=== PATIENT | male | born 1960 | race Caucasian/White ===

== ENCOUNTER → 2016-10-27 | Day surgery (SDC) | payer BC ==
[2016-10-16 10:56] VITALS: Ht 180.3 cm; Wt 90.9 kg
[~2016-10-27] VITALS: Ht 180.3 cm; Wt 90.9 kg
[~2016-10-27] MED LIST: AMLO-114 PO; ASPCH81X PO; ATOR-24 PO; CHOL100010 PO; HYDR25TA4 PO; LIDOCAINE HCL 2% 2 ML VIAL (20MG/ML) ONE; LSNP/30 PO; METO100T44 PO; MIDAZOLAM HCL 1 MG/ML 2ML VIAL ONE; MULT-506 PO; NAPR1TAB9 PO; ONDANSETRON INJ 2 MG/ML 2 ML VIAL ONE; PROPOFOL IV EMULSION 10 MG/ML 20 ML VIAL IV ONE; SODIUM CHLORIDE 0.9% 500ML 500 ML IV ONE
--- NOTE | 2016-10-27 14:27 | Endo History and Physical ---
History & Physical Date of Service: October 27, 2016. Chief Complaint: screening Referring Physician: Dr. Bhavani Mott History of Present Illness 55 yo CM who presents for screening colonoscopy. Past Medical History Hypertension, CVA/TIA Past Surgical History Hx Cardiac Surgery: No Hx Internal Defibrillator: No Hx Pacemaker: No Hx Abdominal Surgery: No Hx of Implantable Prosthesis: No Hx Post-Op Nausea and Vomiting: No Hx Cancer Surgery: No Hx Thoracic Surgery: No Hx Orthopedic: No Hx Urinary Tract Surgery: No Family History None Social History Smoking Status: Never Smoker Hx Substance Use: No Hx Alcohol Use: Yes (1 DRINK DAILY) Allergies Coded Allergies: Penicillins (Verified Allergy, Unknown, UNKNOWN, 10/16/16) Current Medications Reported Home Medications Medications Dose Route/Sig Max Daily Dose Days Date Category Aleve (Naproxen) 220 Mg Tab 220 Mg PO QAM 10/16/16 Reported Vitamin D (Cholecalciferol) 1,000 Unit Tab 1 Tab PO QAM 10/16/16 Reported Multivitamin (Multivitamins) Tab 1 Tab PO QAM 10/16/16 Reported Toprol-Xl (Metoprolol Succinate) 100 Mg Tabcr 100 Mg PO QAM 10/16/16 Reported Zestril (Lisinopril) 30 Mg Tab 30 Mg PO QAM 10/16/16 Reported Hctz (Hydrochlorothiazide) 25 Mg Tab 25 Mg PO QAM 10/16/16 Reported Lipitor (Atorvastatin Calcium) 40 Mg Tab 40 Mg PO QAM 10/16/16 Reported Aspirin Chewable (Aspirin) 81 Mg Chew 81 Mg PO QAM 10/16/16 Reported Norvasc (Amlodipine Besylate) 10 Mg Tab 10 Mg PO QAM 10/16/16 Reported Vital Signs Weight (Kilograms): 90.91 Height (Feet): 5 Height (Inches): 11 Date Time Temp Pulse Resp B/P Pulse Ox O2 Delivery O2 Flow Rate FiO2 10/27/16 14:07 36.8 83 20 118/82 98 Room Air Physical Exam General Appearance: WD/WN, no apparent distress Respiratory/Chest: Auscultation: breath sounds normal Cardiovascular: Heart Auscultation: RRR Abdomen: Bowel Sounds: normal Inspection & Palpation: soft, non-distended, no tenderness, guarding & rebound Assessment and Plan Assessment: 55 yo CM who presents for screening colonoscopy. Plan: Proceed with colonoscopy.
--- NOTE | 2016-10-27 14:47 | Discharge Instructions ---
Endoscopy Patient Instructions Date / Procedure(s) Performed October 27, 2016. Colonoscopy Allergy Information Coded Allergies: Penicillins (Verified Allergy, Unknown, UNKNOWN, 10/16/16) Discharge Date / Findings October 27, 2016. Internal hemorrhoids Medication Instructions Stopped Medication(s): took baby ASA yesterday OK to resume all medications today as prescribed Reported Home Medications Medications Dose Route/Sig Max Daily Dose Days Date Category Aleve (Naproxen) 220 Mg Tab 220 Mg PO QAM 10/16/16 Reported Vitamin D (Cholecalciferol) 1,000 Unit Tab 1 Tab PO QAM 10/16/16 Reported Multivitamin (Multivitamins) Tab 1 Tab PO QAM 10/16/16 Reported Toprol-Xl (Metoprolol Succinate) 100 Mg Tabcr 100 Mg PO QAM 10/16/16 Reported Zestril (Lisinopril) 30 Mg Tab 30 Mg PO QAM 10/16/16 Reported Hctz (Hydrochlorothiazide) 25 Mg Tab 25 Mg PO QAM 10/16/16 Reported Lipitor (Atorvastatin Calcium) 40 Mg Tab 40 Mg PO QAM 10/16/16 Reported Aspirin Chewable (Aspirin) 81 Mg Chew 81 Mg PO QAM 10/16/16 Reported Norvasc (Amlodipine Besylate) 10 Mg Tab 10 Mg PO QAM 10/16/16 Reported Provider Instructions Activity Restrictions - No exercising or heavy lifting for 24 hours. - Do not drink alcohol the day of the procedure. - Do not drive a car or operate machinery until the day after the procedure. - Do not make any important decisions or sign important papers in 24 hours after the procedure. Following Day: - Return to full activity which may include returning to work/school. Diet Start your diet with liquids and light foods (jello, soup, juice, toast). Then eat your usual diet if not nauseated. Treatment For Common After Affects For mild abdominal pain, bloating, or excessive gas: - Rest - Eat lightly - Lie on right side Follow-Up Information Follow-up with Dr. Bhavani Mott as scheduled Anesthesia Information What You Should Know You have had a procedure that required some medicine to reduce anxiety and discomfort. This treatment is called moderate sedation. After receiving the treatment, you may be sleepy, but you will be able to breathe on your own. The effects of the treatment may last for several hours. Follow these instructions along with Activity/Diet recommendations noted above: * Do NOT do anything where dizziness or clumsiness would be dangerous. * Rest quietly at home today, then you can be up and about tomorrow. * Have a responsible person stay with you the rest of today. * You may have had an I.V. today. If so, you may take the dressing off later today. Recommendations Call your doctor if: * Trouble breathing * Continuous vomiting for more than 24 hours * Temperature above 101 degrees * Severe abdominal pain or bloating * Pain not relieved by pain medicine ordered * There is increased drainage or redness from any incision * A large amount of rectal bleeding greater than 2-3 tablespoons. (If you had a polyp/s removed or have hemorrhoids, a small amount of blood - from the rectum is to be expected.) * You have any unanswered questions or concerns. IN THE EVENT OF A SERIOUS EMERGENCY, GO TO THE NEAREST EMERGENCY ROOM Your discharge instructions were prepared by provider Alonzo Espinoza. Patient Instructions Signature Page Keith Lopez Patient (or Guardian) Signature/Date: I have read and understand the instructions given to me by my caregivers. Caregiver/RN/Doctor Signature/Date: The above-named patient and/or guardian has received patient instructions on this date. + Original Patient Signature Page (only) stays with chart. Please make copy for patient.
--- NOTE | 2016-10-27 14:53 | GI REPORT ---
Procedure Date: 10/27/2016 2:03 PM Procedure: Colonoscopy Indications: Screening for colorectal malignant neoplasm Medicines: Monitored Anesthesia Care Complications: No immediate complications. Estimated Blood Loss: Estimated blood loss: none. Procedure: Pre-Anesthesia Assessment: - Prior to the procedure, a History and Physical was performed, and patient medications and allergies were reviewed. The patient's tolerance of previous anesthesia was also reviewed. The risks and benefits of the procedure and the sedation options and risks were discussed with the patient. All questions were answered, and informed consent was obtained. Prior Anticoagulants: The patient has taken aspirin, last dose was 1 day prior to procedure. ASA Grade Assessment: III - A patient with severe systemic disease. After reviewing the risks and benefits, the patient was deemed in satisfactory condition to undergo the procedure. After I obtained informed consent, the scope was passed under direct vision. Throughout the procedure, the patient's blood pressure, pulse, and oxygen saturations were monitored continuously. The scope was introduced through the anus and advanced to the terminal ileum. The colonoscopy was performed without difficulty. The patient tolerated the procedure well. The quality of the bowel preparation was good. The terminal ileum, ileocecal valve, appendiceal orifice, and rectum were photographed. Findings: Non-bleeding internal hemorrhoids were found during retroflexion. The hemorrhoids were small. The exam was otherwise without abnormality. Impression: - Non-bleeding internal hemorrhoids. - The examination was otherwise normal. - No specimens collected. Recommendation: - Resume previous diet. - Continue present medications. - Repeat colonoscopy in 10 years for surveillance. - Return to primary care physician as previously scheduled. Alonzo Espinoza, DO 10/27/2016 2:52:52 PM This report has been signed electronically. Note Initiated On: 10/27/2016 2:03 PM I attest to the content of the Intraoperative Record and orders documented therein, exceptions below
--- NOTE | 2016-10-27 15:13 | Anesthesiology Progress Note ---
Anesthesia Post Op Note Date & Time October 27, 2016 at 15:12 Vital Signs Pain Intensity: 0 Vital Signs Past 12 Hours Date Time Temp Pulse Resp B/P Pulse Ox O2 Delivery O2 Flow Rate FiO2 10/27/16 15:05 58 20 97/67 95 Room Air 10/27/16 14:50 68 20 101/70 94 Room Air 10/27/16 14:07 36.8 83 20 118/82 98 Room Air Notes Mental Status: alert / awake / arousable, participated in evaluation Pt Amnestic to Procedure: Yes Nausea / Vomiting: adequately controlled Pain: adequately controlled Airway Patency, RR, SpO2: stable & adequate BP & HR: stable & adequate Hydration State: stable & adequate Anesthetic Complications: no major complications apparent
[2016-10-27 15:20] VITALS: BP 113/87; PULSE 69; O2SAT 94
== END | disposition home or self-care (01) ==
LOC: C.ACU 13:18
PROVIDERS: ATTEND Internal Medicine
DX: Z12.11 Encounter for screening for malignant neoplasm of colon (principal); K64.8 Other hemorrhoids; I10 Essential (primary) hypertension; Z88.0 Allergy status to penicillin; M19.90 Unspecified osteoarthritis, unspecified site; Z86.73 Personal history of transient ischemic attack (TIA), and cerebral infarction without residual deficits; Z98.818 Other dental procedure status; Z79.82 Long term (current) use of aspirin; Z68.28 Body mass index [BMI] 28.0-28.9, adult

== ENCOUNTER 2025-02-23 19:17 | Observation (INO) ==
[2025-02-23 20:45] LABS: Hematocrit (blood only) 41.8 % (42.0-52.0); Hemoglobin 14.5 g/dl (14.0-18.0); Mean Corpuscular Hemoglobin 34.1 pg (25.0-34.0); Mean Corpuscular Volume 98.4 fL (80.0-100.0); Platelet Count 138 K/uL (130-400); RDW Standard Deviation 46.6 fL (36.4-46.3); Red Blood Count 4.25 M/uL (4.70-6.10); White Blood Count 7.05 K/ul (4.8-10.8)
[2025-02-23 21:01] LABS: Alanine Aminotransferase 224.0 U/L (7-52); Albumin Globulin Ratio 1.6 (0.9-2); Alkaline Phosphatase 70.0 U/L (34-104); Anion Gap 13.0 (3-11); Bilirubin,Total 1.6 mg/dl (0.2-1.0); Blood Urea Nitrogen 23.0 mg/dl (6-23); Calcium 9.9 mg/dl (8.6-10.3); Carbon Dioxide 30.0 mmol/L (21-32); Chloride 96.0 mmol/L (98-107); Creatinine Clr Calc Pharmacy 51.9 ml/min; Globulin 2.7 gm/dl (2.5-4.0); Glucose 97.0 mg/dl (70-99(Fasting)); Magnesium 1.8 mg/dl (1.7-2.4); Potassium 3.2 mmol/L (3.5-5.1); Sodium 139.0 mmol/L (136-145); Total Protein 7.1 gm/dl (6.0-8.3)
[2025-02-23 21:20] LABS: INR 1.0 (0.9-1.1); Partial Thromboplastin Time 28 Seconds (21-31); Prothrombin Time 10.4 Seconds (9.0-12.0)
[2025-02-23] MEDS: OPTIRAY 320 100ml IV ONE (21:29)
--- NOTE | 2025-02-23 23:22 | CT Scan Report ---
Exam(s): CT CHEST With Contrast IV Amt: 90 ml optiray 320 EXAM: CT Chest With Intravenous Contrast CLINICAL HISTORY: Ecchymosis/pain of posterior rib cage, rib fx. TECHNIQUE: Axial computed tomography images of the chest with intravenous contrast. CTDI is 26.58 mGy and DLP is 911.33 mGy-cm. Automated exposure control was utilized for the study. A dose lowering technique was utilized adhering to the principles of ALARA. CONTRAST: Patient received 90 ml optiray 320 of IV contrast COMPARISON: No relevant prior studies available. FINDINGS: Lungs: No pulmonary contusive injury with curvilinear atelectasis in the posterior lower lobes. No mass. Pleural space: Unremarkable. No significant effusion. No pneumothorax. Heart: Unremarkable. No cardiomegaly. No significant pericardial effusion. No significant coronary artery calcifications. Mediastinum: No mediastinal traumatic injury. Small hiatal hernia. Bones/joints: Remote posterior rib fractures noted involving the right 6 and 7th ribs. No acute rib fracture identified. The sternum, thoracic spine and included segments of the shoulders are unremarkable. Soft tissues: No significant overlying acute traumatic soft tissue abnormality. No radiopaque foreign body or subcutaneous emphysema. Vasculature: The thoracic aorta is within normal limits in size. No dissection. Moderate atherosclerotic calcification of the LAD with mild- to-moderate calcification of the RCA and circumflex. The cardiac chambers are upper normal limits. Lymph nodes: Unremarkable. No enlarged lymph nodes. Liver: Incidental cysts noted in segment 8 and segment 2 of the liver. Hepatic steatosis. IMPRESSION: 1. Remote posterior rib fractures noted involving the right 6 and 7th ribs. No acute rib fracture identified. The sternum, thoracic spine and included segments of the shoulders are unremarkable. No significant overlying acute traumatic soft tissue abnormality appreciated. 2. No other findings to suggest significant acute traumatic injury to the chest/thorax. Electronically signed by: Mathieu Sapp MD 02/23/25 23:21 PM
--- NOTE | 2025-02-23 23:46 | CT Scan Report ---
Exam(s): CT HEAD Without Contrast EXAM: CT Head Without Intravenous Contrast CLINICAL HISTORY: Reason for exam: Fall, head trauma, confusion. TECHNIQUE: Axial computed tomography images of the head/brain without intravenous contrast. CTDI is 36.55 mGy and DLP is 624.41 mGy-cm. Automated exposure control was utilized for the study. A dose lowering technique was utilized adhering to the principles of ALARA. COMPARISON: Prior brain MRI from September 01, 2013. FINDINGS: Brain: Remote ischemic injury of the left frontal, parietal and temporal lobes with encephalomalacia and gliosis. Remote ischemic injury of the left capsule. No hemorrhage. Mild nonspecific white matter changes. No edema. Ventricles: Unremarkable. No ventriculomegaly. Bones/joints: Unremarkable. No acute fracture. Soft tissues: Unremarkable. Sinuses: Unremarkable as visualized. No acute sinusitis. Mastoid air cells: Unremarkable as visualized. No mastoid effusion. IMPRESSION: No evidence of acute intracranial pathology. Electronically signed by: Lou Alexandra MD 02/23/25 23:44 PM
--- NOTE | 2025-02-23 23:50 | CT Scan Report ---
Exam(s): CT C SPINE EXAM: CT Cervical Spine Without Intravenous Contrast CLINICAL HISTORY: Reason for exam: fall, confusion,. TECHNIQUE: Axial computed tomography images of the cervical spine without intravenous contrast. CTDI is 24.93 mGy and DLP is 545.68 mGy-cm. Automated exposure control was utilized for the study. A dose lowering technique was utilized adhering to the principles of ALARA. COMPARISON: Prior CT angiogram of the neck from August 21, 2009. FINDINGS: Vertebrae: There is a mild generalized curved to the left and straightening normal cervical lordosis. No acute fracture. Discs/spinal canal/neural foramina: No acute findings. There is a severe spinal canal stenosis at C5-6. Soft tissues: Unremarkable. IMPRESSION: No evidence of acute cervical spine pathology. Electronically signed by: Lou Alexandra MD 02/23/25 23:49 PM
[2025-02-24 00:02] LABS: Appearance Urine Clear (Clear); Bacteria Urine Automated None Seen (None Seen); Cast Urine Automated 0-2 /lpf (0-2); Epithelial Cell Urine Auto 0-2 /hpf (0-2); Glucose Urine UA Negative (Negative); RBC Urine Automated 0-2 /hpf (0-2); WBC Urine Automated 0-5 /hpf (0-5)
--- NOTE | 2025-02-24 00:21 | Emergency Department Note ---
Impression & Plan Acute confusion, Chest wall contusion ED Provider Note NAME: VANDANA PEÑA AGE: 64 SEX: M : 1960 ARRIVES VIA: Walk-In INFORMANT: Patient, ED PROVIDER(S): Hernan Langley MD CHIEF COMPLAINT: Confusion HPI: This is a 64-year-old male present for confusion. Patient reported fall last night. Patient was found by his neighbor who found his chair upside down, patient sitting on the floor. He had his underwear on backwards. He dropped a shirt on through his legs. He was visibly confused. Patient does drink occasionally but patient not appear intoxicated today. Reports no pain, vision changes, difficulty with walking or moving extremities. He otherwise not provide much history. ROS: See above HPI for pertinent positives & negatives. A total of 10 systems reviewed and were otherwise negative. PHYSICAL EXAMINATION: General: resting comfortably in no acute distress Head: Normocephalic and atraumatic Eyes: Normal inspection, extraocular muscles intact Ear, nose, throat: Normal external exam Neck: Normal range of motion Respiratory: lungs clear to auscultation bilaterally Cardiovascular: Regular rate/rhythm, no murmur, posterior chest wall contusion GI: soft, nontender, no guarding or rebound Extremities: nontender, moves all extremities Neuro: Alert, not oriented, conversant, no focal deficits, symmetric face, no motor drift, cranial nerves II through XII intact Skin: Warm, dry, and intact MEDICAL DECISION MAKING: This is a 64-year-old male presented for confusion. Patient does have signs of bruising to the posterior chest wall. He has no neurologic deficits. Will do screening CT imaging of the head, C-spine and chest due to this suspected fall. - CT imaging is negative for acute traumatic injury or intracranial hemorrhage - Blood work reveals no leukocytosis or anemia. Creatinine 1.51. Alcohol level negative. Patient does have transaminitis without right quadrant abdominal tenderness - As patient continues to be confused, not oriented. Will admit to the hospital for further evaluation and treatment - Care discussed with Dr. Ludmila Foster for admission Differential diagnosis: Intracranial hemorrhage, stroke, encephalopathy, UTI Independent History obtained from: Neighbor Diagnostics interpreted by me: ECG: None Cardiac Monitoring: An order was placed for continuous cardiac monitoring. The monitor shows a rate of 60 with sinus rhythm. Past Med/Surg History Problem List (Updated 02/24/25 @ 00:21 by Hernan Langley MD) Chest wall contusion (Acute) Acute confusion (Acute) Sleep walking Renal calculus Anxiety and depression Hypercholesterolemia (Acute) Residual cognitive deficit as late effect of stroke (Acute) Vitamin D deficiency (Acute) Hypertension (Acute 11/01/11) Medical History History of cerebral artery occlusion History of carotid artery dissection History of cerebral infarction Left carotid artery occlusion (11/01/13) Surgical History No history of previous surgery Family History Father Myocardial infarction Mother Diabetes Bipolar disorder Sister No problems noted. Denies family history of Ovarian cancer Prostate cancer Breast cancer Colorectal cancer Social History (Updated 12/06/24 @ 13:51 by Alia Durham) Smoking Status: Never smoker Tobacco Type: Cigarettes Do You Dip or Chew Tobacco: Yes; Hx Alcohol Use: Yes (1 drink a night) Alcohol type: wine Hx Substance Use: No Preferred Language: Bhutanese Communication Ability: Effective Visual Impairment: No Limitations Hearing Ability: Normal Beliefs That Will Affect Care: None marital status: Current Living Situation: Other current occupational status: retired Feels Safe at Home: Yes Childhood Exposure to Second-Hand Smoke: Yes Diet: low salt and regular caffeine: Yes Dental Care, Regularly: No Physical Activity Frequency: Daily Seatbelt Use: always Sunscreen Use: Yes Allergies Allergies Allergy/AdvReac Type Severity Reaction Status Date / Time Penicillins Allergy Unknown HAPPENED Verified 02/23/25 20:56 A SMALL CHILD Home Meds Home Medications Medication Instructions Recorded Confirmed aspirin 81 mg tablet,delayed 81 mg PO DAILY 08/21/20 02/23/25 release (Adult Aspirin Regimen) amlodipine 10 mg tablet 10 mg PO DAILY 02/23/25 02/23/25 atorvastatin 80 mg tablet 80 mg PO DAILY 02/23/25 02/23/25 lisinopril 30 mg tablet 30 mg PO DAILY 02/23/25 02/23/25 Previous Rx's Medication Instructions Recorded hydrochlorothiazide 25 mg tablet 25 mg PO DAILY Hypertension #90 03/07/24 tabs sertraline 100 mg tablet 200 mg (2 x 100 mg) PO DAILY #180 06/22/24 tabs metoprolol succinate 100 mg 100 mg PO DAILY #90 tabs 11/15/24 tablet,extended release 24 hr Results & Data (ED) Vital Signs Vital Signs - 24 hr 02/23/25 19:22 02/23/25 19:33 02/23/25 19:33 Temperature 36.4 C L Temperature Source Temporal Artery Scan Pulse Rate 109 H 90 Pulse Rate [Apical] Pulse Rate from SpO2 Sensor Pulse Rhythm Regular Pulse Strength Normal Respiratory Rate 20 Respiratory Effort / Characteristics Non-Labored Spontaneous Respiratory Depth Normal Respiratory Pattern Regular Blood Pressure 168/115 H 177/109 H Blood Pressure [Right Arm] Blood Pressure Mean 132 123 Blood Pressure Mean [Right Arm] Blood Pressure Position Sitting Blood Pressure Position [Right Arm] Pulse Oximetry 95 Oxygen Delivery Method Room Air Sepsis Recent Fever Within 48 Hours No Sepsis New/Unexplained Change in Mental Status N/A Sepsis Action Taken by Nursing No Action Required 02/23/25 19:40 02/23/25 19:48 02/23/25 20:00 Temperature 36.7 C Temperature Source Oral Pulse Rate 87 85 Pulse Rate [Apical] 92 H Pulse Rate from SpO2 Sensor 87 Pulse Rhythm Pulse Strength Respiratory Rate 16 17 16 Respiratory Effort / Characteristics Non-Labored Respiratory Depth Normal Respiratory Pattern Regular Blood Pressure 142/96 H 149/105 H Blood Pressure [Right Arm] 144/92 H Blood Pressure Mean 111 119 Blood Pressure Mean [Right Arm] 109 Blood Pressure Position Blood Pressure Position [Right Arm] Lying Pulse Oximetry 93 95 95 Oxygen Delivery Method Room Air Room Air Room Air Sepsis Recent Fever Within 48 Hours Sepsis New/Unexplained Change in Mental Status Sepsis Action Taken by Nursing 02/23/25 20:40 02/23/25 22:00 02/23/25 23:00 Temperature Temperature Source Pulse Rate Pulse Rate [Apical] 80 78 68 Pulse Rate from SpO2 Sensor Pulse Rhythm Pulse Strength Respiratory Rate 17 20 18 Respiratory Effort / Characteristics Non-Labored Spontaneous Non-Labored Spontaneous Respiratory Depth Normal Normal Respiratory Pattern Regular Regular Blood Pressure Blood Pressure [Right Arm] 145/93 H 179/115 H 192/112 H Blood Pressure Mean Blood Pressure Mean [Right Arm] 110 136 138 Blood Pressure Position Blood Pressure Position [Right Arm] Pulse Oximetry 94 94 94 Oxygen Delivery Method Room Air Room Air Room Air Sepsis Recent Fever Within 48 Hours Sepsis New/Unexplained Change in Mental Status Sepsis Action Taken by Nursing Laboratory Data 02/23/25 20:30 02/23/25 19:36 Lab Results 02/23/25 02/23/25 02/23/25 Range/Units 19:36 19:39 20:15 WBC (4.8-10.8) K/ul RBC (4.70-6.10) M/uL Hgb (14.0-18.0) g/dl Hct (42.0-52.0) % MCV (80.0-100.0) fL MCH (25.0-34.0) pg MCHC (32.0-36.0) g/dL RDW Std Deviation (36.4-46.3) fL RDW Coeff of Michael (11.5-14.5) % Plt Count (130-400) K/uL MPV (9.4-12.4) fL PT 10.4 (9.0-12.0) Seconds INR 1.0 (0.9-1.1) APTT 28 (21-31) Seconds PTT Ratio 1.0 Sodium 139 (136-145) mmol/L Potassium 3.2 L (3.5-5.1) mmol/L Chloride 96 L (98-107) mmol/L Carbon Dioxide 30 (21-32) mmol/L Anion Gap 13 H (3-11) BUN 23 (6-23) mg/dl Creatinine 1.51 H (0.6-1.4) mg/dl Est Cr Clr Drug Dosing 51.9 ml/min eGFR 50.94 BUN/Creatinine Ratio 15.2 (10-20) Glucose 97 (70-99(Fasting)) mg/dl POC Glucose 99 98 (70-99) mg/dl Calcium 9.9 (8.6-10.3) mg/dl Magnesium 1.8 (1.7-2.4) mg/dl Total Bilirubin 1.6 H (0.2-1.0) mg/dl AST 156 H (13-39) U/L ALT 224 H (7-52) U/L Alkaline Phosphatase 70 (34-104) U/L Total Protein 7.1 (6.0-8.3) gm/dl Albumin 4.4 (3.4-5.0) gm/dl Globulin 2.7 (2.5-4.0) gm/dl Albumin/Globulin Ratio 1.6 (0.9-2) Urine Color Urine Appearance (Clear) Urine pH (4.5-7.5) Ur Specific Rienzi (1.000-1.030) Urine Protein (Negative) Urine Glucose (UA) (Negative) Urine Ketones (Negative) Urine Blood (Negative) Urine Nitrite (Negative) Urine Bilirubin (Negative) Urine Urobilinogen (Negative) Ur Leukocyte Esterase (Negative) Urine WBC (Auto) (0-5) /hpf Urine RBC (Auto) (0-2) /hpf U Hyaline Cast (Auto) (0-2) /lpf U Epithel Cells (Auto) (0-2) /hpf Urine Bacteria (Auto) (None Seen) Urine Comment Ethyl Alcohol mg/dL (<10.0) mg/dl 02/23/25 02/23/25 02/23/25 Range/Units 20:30 22:34 23:30 WBC 7.05 (4.8-10.8) K/ul RBC 4.25 L (4.70-6.10) M/uL Hgb 14.5 (14.0-18.0) g/dl Hct 41.8 L (42.0-52.0) % MCV 98.4 (80.0-100.0) fL MCH 34.1 H (25.0-34.0) pg MCHC 34.7 (32.0-36.0) g/dL RDW Std Deviation 46.6 H (36.4-46.3) fL RDW Coeff of Michael 13.2 (11.5-14.5) % Plt Count 138 (130-400) K/uL MPV 9.4 (9.4-12.4) fL PT (9.0-12.0) Seconds INR (0.9-1.1) APTT (21-31) Seconds PTT Ratio Sodium (136-145) mmol/L Potassium (3.5-5.1) mmol/L Chloride (98-107) mmol/L Carbon Dioxide (21-32) mmol/L Anion Gap (3-11) BUN (6-23) mg/dl Creatinine (0.6-1.4) mg/dl Est Cr Clr Drug Dosing ml/min eGFR BUN/Creatinine Ratio (10-20) Glucose (70-99(Fasting)) mg/dl POC Glucose (70-99) mg/dl Calcium (8.6-10.3) mg/dl Magnesium (1.7-2.4) mg/dl Total Bilirubin (0.2-1.0) mg/dl AST (13-39) U/L ALT (7-52) U/L Alkaline Phosphatase (34-104) U/L Total Protein (6.0-8.3) gm/dl Albumin (3.4-5.0) gm/dl Globulin (2.5-4.0) gm/dl Albumin/Globulin Ratio (0.9-2) Urine Color Yellow Urine Appearance Clear (Clear) Urine pH 6.5 (4.5-7.5) Ur Specific Rienzi > 1.045 H (1.000-1.030) Urine Protein 1+ H (Negative) Urine Glucose (UA) Negative (Negative) Urine Ketones Negative (Negative) Urine Blood Trace H (Negative) Urine Nitrite Negative (Negative) Urine Bilirubin Negative (Negative) Urine Urobilinogen Positive H (Negative) Ur Leukocyte Esterase Negative (Negative) Urine WBC (Auto) 0-5 (0-5) /hpf Urine RBC (Auto) 0-2 (0-2) /hpf U Hyaline Cast (Auto) 0-2 (0-2) /lpf U Epithel Cells (Auto) 0-2 (0-2) /hpf Urine Bacteria (Auto) None Seen (None Seen) Urine Comment Ethyl Alcohol mg/dL < 10.0 (<10.0) mg/dl Administered Medications Discontinued Medications Ioversol (Optiray 320 100ml) 90 ml IV ONCE ONE Stop: 02/23/25 21:30 Last Admin: 02/23/25 21:29 Dose: 90 ml Documented By: JAIR Imaging Data Radiologist's Impression: Head CT 02/23/25 20:30 Exam(s): CT HEAD Without Contrast EXAM: CT Head Without Intravenous Contrast CLINICAL HISTORY: Reason for exam: Fall, head trauma, confusion. TECHNIQUE: Axial computed tomography images of the head/brain without intravenous contrast. CTDI is 36.55 mGy and DLP is 624.41 mGy-cm. Automated exposure control was utilized for the study. A dose lowering technique was utilized adhering to the principles of ALARA. COMPARISON: Prior brain MRI from September 01, 2013. FINDINGS: Brain: Remote ischemic injury of the left frontal, parietal and temporal lobes with encephalomalacia and gliosis. Remote ischemic injury of the left capsule. No hemorrhage. Mild nonspecific white matter changes. No edema. Ventricles: Unremarkable. No ventriculomegaly. Bones/joints: Unremarkable. No acute fracture. Soft tissues: Unremarkable. Sinuses: Unremarkable as visualized. No acute sinusitis. Mastoid air cells: Unremarkable as visualized. No mastoid effusion. IMPRESSION: No evidence of acute intracranial pathology. Electronically signed by: Lou Alexandra MD 02/23/25 23:[address] 02/23/25 21:07 Exam(s): CT C SPINE EXAM: CT Cervical Spine Without Intravenous Contrast CLINICAL HISTORY: Reason for exam: fall, confusion,. TECHNIQUE: Axial computed tomography images of the cervical spine without intravenous contrast. CTDI is 24.93 mGy and DLP is 545.68 mGy-cm. Automated exposure control was utilized for the study. A dose lowering technique was utilized adhering to the principles of ALARA. COMPARISON: Prior CT angiogram of the neck from August 21, 2009. FINDINGS: Vertebrae: There is a mild generalized curved to the left and straightening normal cervical lordosis. No acute fracture. Discs/spinal canal/neural foramina: No acute findings. There is a severe spinal canal stenosis at C5-6. Soft tissues: Unremarkable. IMPRESSION: No evidence of acute cervical spine pathology. Electronically signed by: Lou Alexandra MD 02/23/25 23:[address] 02/23/25 21:07 Exam(s): CT CHEST With Contrast IV Amt: 90 ml optiray 320 EXAM: CT Chest With Intravenous Contrast CLINICAL HISTORY: Ecchymosis/pain of posterior rib cage, rib fx. TECHNIQUE: Axial computed tomography images of the chest with intravenous contrast. CTDI is 26.58 mGy and DLP is 911.33 mGy-cm. Automated exposure control was utilized for the study. A dose lowering technique was utilized adhering to the principles of ALARA. CONTRAST: Patient received 90 ml optiray 320 of IV contrast COMPARISON: No relevant prior studies available. FINDINGS: Lungs: No pulmonary contusive injury with curvilinear atelectasis in the posterior lower lobes. No mass. Pleural space: Unremarkable. No significant effusion. No pneumothorax. Heart: Unremarkable. No cardiomegaly. No significant pericardial effusion. No significant coronary artery calcifications. Mediastinum: No mediastinal traumatic injury. Small hiatal hernia. Bones/joints: Remote posterior rib fractures noted involving the right 6 and 7th ribs. No acute rib fracture identified. The sternum, thoracic spine and included segments of the shoulders are unremarkable. Soft tissues: No significant overlying acute traumatic soft tissue abnormality. No radiopaque foreign body or subcutaneous emphysema. Vasculature: The thoracic aorta is within normal limits in size. No dissection. Moderate atherosclerotic calcification of the LAD with mild- to-moderate calcification of the RCA and circumflex. The cardiac chambers are upper normal limits. Lymph nodes: Unremarkable. No enlarged lymph nodes. Liver: Incidental cysts noted in segment 8 and segment 2 of the liver. Hepatic steatosis. IMPRESSION: 1. Remote posterior rib fractures noted involving the right 6 and 7th ribs. No acute rib fracture identified. The sternum, thoracic spine and included segments of the shoulders are unremarkable. No significant overlying acute traumatic soft tissue abnormality appreciated. 2. No other findings to suggest significant acute traumatic injury to the chest/thorax. Electronically signed by: Mathieu Sapp MD 02/23/25 23:21 PM Discharge Plan Visit Data Chief Complaint: Neuro Symptoms/Deficit Stated Complaint: COGNITIVE PROBLEMS, HX STROKE (~10 YRS AGO) ED Provider: Hernan Langley Discharge Problem: Acute confusion, Chest wall contusion Patient Disposition: Admitted As Inpatient Condition: Fair Forms Stand Alone Forms: My [facility] [employer] Prescriptions Prescriptions: No Action hydrochlorothiazide 25 mg tablet 25 mg PO DAILY Qty: 90 3RF sertraline 100 mg tablet 200 mg PO DAILY Qty: 180 3RF metoprolol succinate 100 mg tablet extended release 24 hr 100 mg PO DAILY Qty: 90 1RF aspirin [Adult Aspirin Regimen] 81 mg tablet,delayed release (DR/EC) 81 mg PO DAILY atorvastatin 80 mg tablet 80 mg PO DAILY amlodipine 10 mg tablet 10 mg PO DAILY lisinopril 30 mg tablet 30 mg PO DAILY Rx Instructions: GOAL BELOW 140/90 Referrals Referrals: Bhavani Mott MD [Primary Care Provider] - Discharge Problem: Chest wall contusion Qualifiers: Encounter type: initial encounter Laterality: right Qualified Code(s): S20.211A - Contusion of right front wall of thorax, initial encounter
--- NOTE | 2025-02-24 00:23 | History & Physical Report ---
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 His evaluation does not reveal evidence of acute infection but does have electrolyte abnormalities to include hypokalemia, elevated anion gap, and elevated creatinine. His LFTs are also abnormal, with AST/ALT 156/224 respectively, and a bilirubin of 1.6. Head + C spine CT are unremarkable. Chest CT reveals old R sided 6th + 7th rib fractures. Admission for recent fall, episode of acute confusion, and transaminitis. #Acute confusion/Transaminitis/Fall Fall at home, found by "roommate, Khari". Does not remember fall. Does not remember much leading up to arrival at hospital, but able to recall some moments since in the hospital. No reported history of seizures. Without complaints at present. Admits to alcohol use, 1-2 drinks per night without any history of withdrawal per patient. Pt is at risk for alcohol WD, AWSS ordered. Etiology of brief confusion and fall unclear at present, pending remaining workup. Will admit with specific attention to transaminitis and etiologies of such. Continue to adjust treatment pending remaining workup. - CBC without leukocytosis, stable H/H; CMP K 3.1, Cr 1.51, bili 1.6, AST 156, ALT 224 (PT/INR WNL) - CBC, CMP am - TSH, ammonia, acetaminophen, UDS, EBV, CMV, CK pending - UA without infection - Head + C spine CT without acute findings - Chest CT with remote R sided 6th + 7th rib fractures, no acute findings - Fall precautions - AWSS - Hold atorvastatin - Zofran prn N/V - Thiamine + folic acid IV am - Ativan po per protocol - RUQ US pending #Chest wall contusion Likely 2/2 recent injury at home, no pain at present - CT chest with remote R sided 6th + 7th posterior rib fractures, no acute findings - IS #Renal insufficiency Likely in setting of poor intake over the - Cr 1.51, BUN 23 - BMP am - UA without evidence of infection - Bladder scan prn - IVF LR @ 80 mL/hr - Avoid nephrotoxic agents -- HOLD lisinopril at admission #Hypokalemia On HCTZ at baseline; Asx. - K 3.2, Mg 1.8 - BMP am - EKG NSR, without changes - HOLD HCTZ at admission, pending repeat K - KCl 40 mEq po now #Psych- Sertraline - continue #HTN- Amlodipine, HCTZ, lisinopril, metoprolol - HOLD HCTZ + Lisinopril for above (potassium, creatinine), continue amlodipine + metoprolol #Hypercholesterolemia- Atorvastatin - HOLD in setting of transaminitis Dispo: Admit, med/tele VTE Prophylaxis: SCDs This document was dictated utilizing Arc[employer]. Please excuse any grammatical errors that may be secondary to use of this software. 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 Pt does not recall any components of the fall, nor the events leading up to the fall. He states that his roommate, Khari, was the one to find him and "force" him to come to the hospital. Pt is without any complaints. He states that he does "not really" remember the reason why he is at the hospital. His only complaint is that he has not been eating much over "the past few weeks", stating that he is often nauseous with eating or 1-2 hours after eating. Occasionally has "a few dribbles" of emesis with the nausea. He does admit to weighing 199lbs ~ 4 weeks ago, believes that he has lost weight (wt at admission = 180lbs). He does have occasional constipation. No diarrhea. He denies any abdominal pain. No neurological deficits, headache, URI symptoms, F/C, or LUTS. Denies dizziness. Does admit to drinking ~ 1-2 drinks per night (liquor), with last drink being the night [employer]DER. Responds "yeah maybe... probably" when asked if he believes his drinking is a problem. Admits to occasionally drinking so much that he does not remember the events that occurred during drinking the next day. He denies history of withdrawal from alcohol, seizures from not drinking, or prior treatment for alcohol use. He is able to go a few days without a drink without symptoms. He admits to marijuana use "in the past" but states that it is not recent. He is without complaints otherwise. Does not feel confused. ED evaluation reveals CBC without leukocytosis, stable H/H; PT/INR WNL; CMP K 3.2, Cl 96, AG 13, Cr 1.51, bilirubin 1.6, AST 156, ALT 224; UA negative for infection; alcohol level negative; Head CT without acute findings; Cervical spine CT without acute findings; Chest CT remote posterior rib fx R 6th + 7th, no acute fractures, no other acute findings; EKG NSR. Please see Dr. Foster's attestation for adjustments/additions to treatment plan. Allergies Allergy/AdvReac Type Severity Reaction Status Date / Time Penicillins Allergy Unknown HAPPENED Verified 02/23/25 20:56 A SMALL CHILD Home Medications Medication Instructions Recorded Confirmed Type aspirin 81 mg tablet,delayed 81 mg PO DAILY 08/21/20 02/23/25 History release (Adult Aspirin Regimen) hydrochlorothiazide 25 mg tablet 25 mg PO DAILY Hypertension #90 03/07/24 02/23/25 Rx tabs sertraline 100 mg tablet 200 mg (2 x 100 mg) PO DAILY #180 06/22/24 02/23/25 Rx tabs metoprolol succinate 100 mg 100 mg PO DAILY #90 tabs 11/15/24 02/23/25 Rx tablet,extended release 24 hr amlodipine 10 mg tablet 10 mg PO DAILY 02/23/25 02/23/25 History atorvastatin 80 mg tablet 80 mg PO DAILY 02/23/25 02/23/25 History lisinopril 30 mg tablet 30 mg PO DAILY 02/23/25 02/23/25 History Past Med/Surg History Problem List (Updated 02/24/25 @ 01:25 by Emir Benito PA-C) Hypokalemia Renal insufficiency Transaminitis Chest wall contusion (Acute) Acute confusion (Acute) Sleep walking Renal calculus Anxiety and depression Hypercholesterolemia (Acute) Residual cognitive deficit as late effect of stroke (Acute) Vitamin D deficiency (Acute) Hypertension (Acute 11/01/11) Medical History History of cerebral artery occlusion with cerebral infarction History of carotid artery dissection History of cerebral infarction history of lunar infarct Left carotid artery occlusion (11/01/13) Surgical History No history of previous surgery Family History Father Myocardial infarction Mother Diabetes Bipolar disorder Sister No problems noted. Denies family history of Ovarian cancer Prostate cancer Breast cancer Colorectal cancer Social History Smoking Status: Former smoker Tobacco Type: Smokeless Tobacco (Dip or Chew) Second Hand Exposure: No; Do You Dip or Chew Tobacco: Yes; Hx Alcohol Use: Yes Alcohol type: hard liquor Hx Substance Use: Yes Last Used Substance: Unknown Last Used Substance Other:: 2 x per year Preferred Language: Swedish Communication Ability: Effective Visual Impairment: No Limitations Hearing Ability: Normal Beliefs That Will Affect Care: None marital status: Current Living Situation: Other Current Living Situation Comment: friend current occupational status: retired Other Information That Helps Us Care for You: No Feels Safe at Home: Yes Safety Concerns: Feels Safe At This Time Childhood Exposure to Second-Hand Smoke: Yes Diet: low salt and regular caffeine: Yes Dental Care, Regularly: No Physical Activity Frequency: Daily Seatbelt Use: always Sunscreen Use: Yes Assistive Devices: Glasses Review of Systems Review of Systems: All systems reviewed & are unremarkable except as noted in Subjective Physical Exam Physical Exam: General: No acute distress Skin: Warm and dry Head: Normocephalic, atraumatic Eyes: PERRL, conjunctivae clear, sclera non-icteric ENT: External ear and ear canal without swelling; nose atraumatic; good dentition, tongue normal appearance, pharynx normal Neck: Supple, no LAD Cardio/Chest: RRR, no M/G/R, S1 and S2 normal; mild bruising Resp: No respiratory distress, Lungs CTA in all lobes bilaterally, no wheezes, rales, or rhonchi Abdomen: Soft, symmetric, nontender; No masses or hepatosplenomegaly; Bowel sounds normoactive MSK: No deformities; pulses palpable and equal; no edema. Neuro: II- PERRL, no VF deficits III, IV, - EOMs intact, no deviation, no nystagmus V- Normal sensation in all locations VII- No asymmetry, no nasolabial fold flattening VIII- Normal hearing to speech IX, X- Normal palatal elevation, no ulnar deviation XI- 5/5 head turn + unable to understand directions for shoulder shrug even after demonstration XII- Midline tongue protrusion Motor: 5/5 strength throughout BUE/BLE; no pronator drift Reflexes: WNL throughout, no clonus Sensory: Normal sensation throughout, no hemineglect, Romberg absent Coordination: Normal [id number], no tremor, no dysmetria, normal RIVERA Gait: Unable to assess; no complaints Psych: Appropriate mood and affect; Where "[facility]", when "unsure... I have no guess to the year", president "Joseline... someone told me earlier" Results & Data Results & Data Vital Signs (Past 12 Hours) Vital Signs Temp Pulse Pulse Resp BP BP Pulse Ox 02/23/25 23:00 68 18 192/112 H 94 02/23/25 22:00 78 20 179/115 H 94 02/23/25 20:40 80 17 145/93 H 94 02/23/25 20:00 85 16 149/105 H 95 02/23/25 19:48 87 17 142/96 H 95 02/23/25 19:40 36.7 C 92 H 16 144/92 H 93 02/23/25 19:33 177/109 H 02/23/25 19:33 90 02/23/25 19:22 36.4 C L 109 H 20 168/115 H 95 O2 Del Method 02/23/25 23:00 Room Air 02/23/25 22:00 Room Air 02/23/25 20:40 Room Air 02/23/25 20:00 Room Air 02/23/25 19:48 Room Air 02/23/25 19:40 Room Air 02/23/25 19:33 02/23/25 19:33 02/23/25 19:22 Room Air Laboratory Results 02/23/25 02/23/25 02/23/25 23:30 22:34 20:30 WBC 7.05 RBC 4.25 L Hgb 14.5 Hct 41.8 L MCV 98.4 MCH 34.1 H MCHC 34.7 RDW Std Deviation 46.6 H RDW Coeff of Michael 13.2 Plt Count 138 MPV 9.4 PT INR APTT PTT Ratio Sodium Potassium Chloride Carbon Dioxide Anion Gap BUN Creatinine Est Cr Clr Drug Dosing eGFR BUN/Creatinine Ratio Glucose POC Glucose Calcium Magnesium Total Bilirubin AST ALT Alkaline Phosphatase Total Protein Albumin Globulin Albumin/Globulin Ratio Urine Color Yellow Urine Appearance Clear Urine pH 6.5 Ur Specific [place] > 1.045 H Urine Protein 1+ H Urine Glucose (UA) Negative Urine Ketones Negative Urine Blood Trace H Urine Nitrite Negative Urine Bilirubin Negative Urine Urobilinogen Positive H Ur Leukocyte Esterase Negative Urine WBC (Auto) 0-5 Urine RBC (Auto) 0-2 U Hyaline Cast (Auto) 0-2 U Epithel Cells (Auto) 0-2 Urine Bacteria (Auto) None Seen Urine Comment Ethyl Alcohol mg/dL < 10.0 02/23/25 02/23/25 02/23/25 20:15 19:39 19:36 WBC RBC Hgb Hct MCV MCH MCHC RDW Std Deviation RDW Coeff of Michael Plt Count MPV PT 10.4 INR 1.0 APTT 28 PTT Ratio 1.0 Sodium 139 Potassium 3.2 L Chloride 96 L Carbon Dioxide 30 Anion Gap 13 H BUN 23 Creatinine 1.51 H Est Cr Clr Drug Dosing 51.9 eGFR 50.94 BUN/Creatinine Ratio 15.2 Glucose 97 POC Glucose 98 99 Calcium 9.9 Magnesium 1.8 Total Bilirubin 1.6 H AST 156 H ALT 224 H Alkaline Phosphatase 70 Total Protein 7.1 Albumin 4.4 Globulin 2.7 Albumin/Globulin Ratio 1.6 Urine Color Urine Appearance Urine pH Ur Specific [place] Urine Protein Urine Glucose (UA) Urine Ketones Urine Blood Urine Nitrite Urine Bilirubin Urine Urobilinogen Ur Leukocyte Esterase Urine WBC (Auto) Urine RBC (Auto) U Hyaline Cast (Auto) U Epithel Cells (Auto) Urine Bacteria (Auto) Urine Comment Ethyl Alcohol mg/dL Diagnostic Findings Head CT 02/23/25 20:30 Exam(s): CT HEAD Without Contrast EXAM: CT Head Without Intravenous Contrast CLINICAL HISTORY: Reason for exam: Fall, head trauma, confusion. TECHNIQUE: Axial computed tomography images of the head/brain without intravenous contrast. CTDI is 36.55 mGy and DLP is 624.41 mGy-cm. Automated exposure control was utilized for the study. A dose lowering technique was utilized adhering to the principles of ALARA. COMPARISON: Prior brain MRI from September 01, 2013. FINDINGS: Brain: Remote ischemic injury of the left frontal, parietal and temporal lobes with encephalomalacia and gliosis. Remote ischemic injury of the left capsule. No hemorrhage. Mild nonspecific white matter changes. No edema. Ventricles: Unremarkable. No ventriculomegaly. Bones/joints: Unremarkable. No acute fracture. Soft tissues: Unremarkable. Sinuses: Unremarkable as visualized. No acute sinusitis. Mastoid air cells: Unremarkable as visualized. No mastoid effusion. IMPRESSION: No evidence of acute intracranial pathology. Electronically signed by: Lou Alexandra MD 02/23/25 23:[address] 02/23/25 21:07 Exam(s): CT C SPINE EXAM: CT Cervical Spine Without Intravenous Contrast CLINICAL HISTORY: Reason for exam: fall, confusion,. TECHNIQUE: Axial computed tomography images of the cervical spine without intravenous contrast. CTDI is 24.93 mGy and DLP is 545.68 mGy-cm. Automated exposure control was utilized for the study. A dose lowering technique was utilized adhering to the principles of ALARA. COMPARISON: Prior CT angiogram of the neck from August 21, 2009. FINDINGS: Vertebrae: There is a mild generalized curved to the left and straightening normal cervical lordosis. No acute fracture. Discs/spinal canal/neural foramina: No acute findings. There is a severe spinal canal stenosis at C5-6. Soft tissues: Unremarkable. IMPRESSION: No evidence of acute cervical spine pathology. Electronically signed by: Lou Alexandra MD 02/23/25 23:[address] 02/23/25 21:07 Exam(s): CT CHEST With Contrast IV Amt: 90 ml optiray 320 EXAM: CT Chest With Intravenous Contrast CLINICAL HISTORY: Ecchymosis/pain of posterior rib cage, rib fx. TECHNIQUE: Axial computed tomography images of the chest with intravenous contrast. CTDI is 26.58 mGy and DLP is 911.33 mGy-cm. Automated exposure control was utilized for the study. A dose lowering technique was utilized adhering to the principles of ALARA. CONTRAST: Patient received 90 ml optiray 320 of IV contrast COMPARISON: No relevant prior studies available. FINDINGS: Lungs: No pulmonary contusive injury with curvilinear atelectasis in the posterior lower lobes. No mass. Pleural space: Unremarkable. No significant effusion. No pneumothorax. Heart: Unremarkable. No cardiomegaly. No significant pericardial effusion. No significant coronary artery calcifications. Mediastinum: No mediastinal traumatic injury. Small hiatal hernia. Bones/joints: Remote posterior rib fractures noted involving the right 6 and 7th ribs. No acute rib fracture identified. The sternum, thoracic spine and included segments of the shoulders are unremarkable. Soft tissues: No significant overlying acute traumatic soft tissue abnormality. No radiopaque foreign body or subcutaneous emphysema. Vasculature: The thoracic aorta is within normal limits in size. No dissection. Moderate atherosclerotic calcification of the LAD with mild- to-moderate calcification of the RCA and circumflex. The cardiac chambers are upper normal limits. Lymph nodes: Unremarkable. No enlarged lymph nodes. Liver: Incidental cysts noted in segment 8 and segment 2 of the liver. Hepatic steatosis. IMPRESSION: 1. Remote posterior rib fractures noted involving the right 6 and 7th ribs. No acute rib fracture identified. The sternum, thoracic spine and included segments of the shoulders are unremarkable. No significant overlying acute traumatic soft tissue abnormality appreciated. 2. No other findings to suggest significant acute traumatic injury to the chest/thorax. Electronically signed by: Mathieu Sapp MD 02/23/25 23:21 PM ECG Additional Comments: NSR 83 bpm, DE 144, QRS 88, QT/QTc 372/437, PRT 04/25/2018 Code Status & VTE Plan Code Status Full Supervising Physician Co-Signing Physician Notes Patient seen and examined, chart reviewed, case discussed with MEKHI Benito and I agree with the assessment and plan as above PG Care Time/CCT Total # of Minutes Spent Total Time Spent with Patient: Total time spent is greater than 50% in coordination of care (as documented) at patient's floor/unit and/or counseling patient: Coding Level of Care Code 66398 INT INP/OBS CARE 3/75MIN Diagnoses Acute confusion R41.0 Transaminitis R74.01 Chest wall contusion S20.211A Encounter type: initial encounter Laterality: right Renal insufficiency N28.9 Hypokalemia E87.6 (3) Chest wall contusion Encounter type: initial encounter Laterality: right Qualified Code(s): S20.211A - Contusion of right front wall of thorax, initial encounter
[2025-02-24 01:39] LABS: Creatine Kinase 692.0 U/L (30-223)
[2025-02-24 01:55] LABS: Thyroid Stimulating Hormone 2.835 uIu/ml (0.300-4.500)
[2025-02-24 01:59] LABS: Amphetamines+Metham, Urine Neg (Neg); MDMA (Ecstacy), Urine Neg (Neg); Marijuana, Urine Neg (Neg)
[2025-02-24] MEDS ORDERED: ONDANSETRON INJ 2 MG/ML 2 ML VIAL IV PRN (02:14)
[2025-02-24] MEDS ORDERED: MELATONIN 3 MG TAB PO PRN (02:14)
[2025-02-24] MEDS ORDERED: POLYETHYLENE (MIRALAX) 17 GM PACK PO PRN (02:14)
[2025-02-24] MEDS: LACTATED RINGER'S 1,000 ML IV SCH (02:41)
[2025-02-24] MEDS: POTASSIUM CHLORIDE 20 MEQ/15 ML UDC PO STA (03:01)
[2025-02-24 03:17] LABS: EBV Nuclear Antigen IgG Ab Positive; EBV Nuclear Antigen IgG Quant 107.0 U/mL (< 18.0)
[2025-02-24 03:18] LABS: EBV IgG Quant 357.0 U/mL (< 18.0); EBV IgM Quant < 10.0 U/mL (< 36.0)
[2025-02-24] MEDS: LORazepam 1 MG TAB PO PRN (06:23)
--- NOTE | 2025-02-24 08:22 | Hospitalist Progress Note ---
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 His evaluation does not reveal evidence of acute infection but does have electrolyte abnormalities to include hypokalemia, elevated anion gap, and elevated creatinine. His LFTs are also abnormal, with AST/ALT 156/224 respectively, and a bilirubin of 1.6. Head + C spine CT are unremarkable. Chest CT reveals old R sided 6th + 7th rib fractures. Admission for recent fall, episode of acute confusion, and transaminitis. # Fall, acute metabolic encephalopathy - not clear which came first. At his baseline mental status today. Appears he was probably dehydrated and had not been eating. If confusion only after the fall, could have been mild concussion but with quick resolution seems unlikely # Alcoholic hepatitis - mild. LFTs downtrending. INR normal. Abd US with hepatic steatosis and some nonspecific GB wall thickening. No RUQ pain or tenderness. -other labs sent - EBC c/w past infection, CMV pending. hepatitis B/C screening, AM LFT ordered # Food regurgitation x 1 month. Doesn't sound like vomiting. Mild anemia. Black stools a few weeks ago. No abdominal or esophageal pain. Takes ASA and too much EtOH -could be esophagitis, stricture, web/ring, achalasia -start IV PPI -trial premeal po reglan in case it is actually emesis -consult gastroenterology - reviewed recs - probably outpatient EGD unless remaining in hospital through next week -iron studies, B12, folate and stool guaiac ordered -ferritin high cw inflammatory block, B12 368 - deserves oral supp. Folate>22 # Elevated CK and trace blood in urine no RBC's - repeat UA in primary care. Probably from muscle injury. CK only 700, not elevated enough to be rhabdomyolysis. # Probable alcohol use disorder - admits to several liquor drinks a night. Counseled wrt cessation -no evidence of withdrawal thus far, monitor AWSS. The score of 9 earlier but not compatible with significant withdrawal based on exam, symptoms ANIL - Cr normalized to his baseline 1.14 Hypokalemia - replaced resolved to 3.5, HCTZ held. AM BMP Possible pancytopenia vs diluted sample - repeat CBC in AM History of CVA with cognitive deficits - ASA, statin, BP meds #Chest wall contusion Likely 2/2 recent injury at home, no pain at present - CT chest with remote R sided 6th + 7th posterior rib fractures, no acute findings - IS #Mood disorder- Sertraline - continue #HTN- Amlodipine, HCTZ, lisinopril, metoprolol - held HCTZ + Lisinopril for above (potassium, creatinine), continue amlodipine + metoprolol, resume lisinopril #Hypercholesterolemia- Atorvastatin - held for elevated CK VTE Prophylaxis: SCDs - start chemo ppx if not home tomorrow which seems likely Admission and Anticipated Discharge Date Admission Date: February 24, 2025 Subjective Additional history - not eating x 1 month. Sounds like he is having regurgitation of food apx 2h after eating. Did eat bfast today but no appetite/felt full did not eat lunch. Saw PCP few weeks ago had black stool at that time, no pepto-bismol or iron pills, on ASA not on PPI No abdominal pain or heartburn pain Physical Exam 2 Physical Exam: Last 24h vitals reviewed GEN: no acute distress, sitting in bed HEENT: pupils equal, sclerae anicteric, moist MM RESP: normal WOB, CTAB CV: reg no mrg ABD: soft/nt/nd +BT. no epigastric tenderness : no collins SKIN: warm and dry, no generalized rashes NEURO: AOx person, place, and situation. Face symmetric, speech normal, moves 4 ext spontaneously and equally. No tremor or diaphoresis Results & Data Results & Data Vital Signs (Past 12 Hours) Vital Signs Temp Pulse Pulse Pulse Resp BP BP 02/24/25 07:32 36.9 C 58 L 18 159/97 H 02/24/25 07:28 56 L 02/24/25 05:21 37.1 C 59 L 18 174/110 H 02/24/25 02:19 37.5 C 61 18 193/105 H 02/24/25 02:14 65 02/24/25 01:42 36.6 C 58 L 22 176/108 H 02/24/25 01:00 57 L 20 168/101 H 02/24/25 00:00 36.5 C 59 L 20 172/110 H 02/23/25 23:00 68 18 192/112 H 02/23/25 22:00 78 20 179/115 H 02/23/25 20:40 80 17 145/93 H Pulse Ox O2 Del Method 02/24/25 07:32 95 Room Air 02/24/25 07:28 02/24/25 05:21 95 Room Air 02/24/25 02:19 96 Room Air 02/24/25 02:14 02/24/25 01:42 93 Room Air 02/24/25 01:00 95 Room Air 02/24/25 00:00 94 Room Air 02/23/25 23:00 94 Room Air 02/23/25 22:00 94 Room Air 02/23/25 20:40 94 Room Air Laboratory Results 02/24/25 11:21 02/24/25 11:[address] 02/23/25 20:30 Exam(s): CT HEAD Without Contrast EXAM: CT Head Without Intravenous Contrast CLINICAL HISTORY: Reason for exam: Fall, head trauma, confusion. TECHNIQUE: Axial computed tomography images of the head/brain without intravenous contrast. CTDI is 36.55 mGy and DLP is 624.41 mGy-cm. Automated exposure control was utilized for the study. A dose lowering technique was utilized adhering to the principles of ALARA. COMPARISON: Prior brain MRI from September 01, 2013. FINDINGS: Brain: Remote ischemic injury of the left frontal, parietal and temporal lobes with encephalomalacia and gliosis. Remote ischemic injury of the left capsule. No hemorrhage. Mild nonspecific white matter changes. No edema. Ventricles: Unremarkable. No ventriculomegaly. Bones/joints: Unremarkable. No acute fracture. Soft tissues: Unremarkable. Sinuses: Unremarkable as visualized. No acute sinusitis. Mastoid air cells: Unremarkable as visualized. No mastoid effusion. IMPRESSION: No evidence of acute intracranial pathology. Electronically signed by: Lou Alexandra MD 02/23/25 23:[address] 02/23/25 21:07 Exam(s): CT C SPINE EXAM: CT Cervical Spine Without Intravenous Contrast CLINICAL HISTORY: Reason for exam: fall, confusion,. TECHNIQUE: Axial computed tomography images of the cervical spine without intravenous contrast. CTDI is 24.93 mGy and DLP is 545.68 mGy-cm. Automated exposure control was utilized for the study. A dose lowering technique was utilized adhering to the principles of ALARA. COMPARISON: Prior CT angiogram of the neck from August 21, 2009. FINDINGS: Vertebrae: There is a mild generalized curved to the left and straightening normal cervical lordosis. No acute fracture. Discs/spinal canal/neural foramina: No acute findings. There is a severe spinal canal stenosis at C5-6. Soft tissues: Unremarkable. IMPRESSION: No evidence of acute cervical spine pathology. Electronically signed by: Lou Alexandra MD 02/23/25 23:[address] 02/23/25 21:07 Exam(s): CT CHEST With Contrast IV Amt: 90 ml optiray 320 EXAM: CT Chest With Intravenous Contrast CLINICAL HISTORY: Ecchymosis/pain of posterior rib cage, rib fx. TECHNIQUE: Axial computed tomography images of the chest with intravenous contrast. CTDI is 26.58 mGy and DLP is 911.33 mGy-cm. Automated exposure control was utilized for the study. A dose lowering technique was utilized adhering to the principles of ALARA. CONTRAST: Patient received 90 ml optiray 320 of IV contrast COMPARISON: No relevant prior studies available. FINDINGS: Lungs: No pulmonary contusive injury with curvilinear atelectasis in the posterior lower lobes. No mass. Pleural space: Unremarkable. No significant effusion. No pneumothorax. Heart: Unremarkable. No cardiomegaly. No significant pericardial effusion. No significant coronary artery calcifications. Mediastinum: No mediastinal traumatic injury. Small hiatal hernia. Bones/joints: Remote posterior rib fractures noted involving the right 6 and 7th ribs. No acute rib fracture identified. The sternum, thoracic spine and included segments of the shoulders are unremarkable. Soft tissues: No significant overlying acute traumatic soft tissue abnormality. No radiopaque foreign body or subcutaneous emphysema. Vasculature: The thoracic aorta is within normal limits in size. No dissection. Moderate atherosclerotic calcification of the LAD with mild- to-moderate calcification of the RCA and circumflex. The cardiac chambers are upper normal limits. Lymph nodes: Unremarkable. No enlarged lymph nodes. Liver: Incidental cysts noted in segment 8 and segment 2 of the liver. Hepatic steatosis. IMPRESSION: 1. Remote posterior rib fractures noted involving the right 6 and 7th ribs. No acute rib fracture identified. The sternum, thoracic spine and included segments of the shoulders are unremarkable. No significant overlying acute traumatic soft tissue abnormality appreciated. 2. No other findings to suggest significant acute traumatic injury to the chest/thorax. Electronically signed by: Mathieu aSpp MD 02/23/25 23:21 PM Liver Ultrasound 02/24/25 01:08 US liver CLINICAL HISTORY: Transaminitis. COMPARISON STUDY: No previous studies for comparison. FINDINGS: This exam is mildly compromised by suboptimal penetration. The pancreas is obscured by bowel gas. Hepatic echogenicity is diffusely increased. No hepatic lesions are identified. There is no biliary ductal dilatation. Mild gallbladder wall thickening is noted. No sonographic Peterson sign was elicited. No gallstones are identified. There is no right hydronephrosis. Subcentimeter right renal cyst is present. IMPRESSION: 1. No gallstones or biliary ductal dilatation. 2. Mild gallbladder wall thickening, a nonspecific finding. However, no convincing evidence for acute cholecystitis. 3. Hepatic steatosis. 4. Exam mildly compromised by suboptimal penetration. Obscured pancreas. ACT 112: Negative or not required by law. Electronically signed by: Delfin Rodriguez M.D. 02/24/2025 9:03 AM PG Care Time/CCT Total # of Minutes Spent Total Time Spent with Patient: Total time spent is greater than 50% in coordination of care (as documented) at patient's floor/unit and/or counseling patient: Coding Level of Care Code None Diagnoses Acute confusion R41.0 Transaminitis R74.01 Chest wall contusion S20.211A Encounter type: initial encounter Laterality: right Renal insufficiency N28.9 Hypokalemia E87.6 (3) Chest wall contusion Encounter type: initial encounter Laterality: right Qualified Code(s): S 20.211A - Contusion of right front wall of thorax, initial encounter
--- NOTE | 2025-02-24 09:04 | Ultrasound Report ---
US liver CLINICAL HISTORY: Transaminitis. COMPARISON STUDY: No previous studies for comparison. FINDINGS: This exam is mildly compromised by suboptimal penetration. The pancreas is obscured by katharine l gas. Hepatic echogenicity is diffusely increased. No hepatic lesions are identified. There is no bi liary ductal dilatation. Mild gallbladder wall thickening is noted. No sonographic Peterson sign was el icited. No gallstones are identified. There is no right hydronephrosis. Subcentimeter right renal cys t is present. IMPRESSION: 1. No gallstones or biliary ductal dilatation. 2. Mild gallbladder wall thickening, a nonspecific finding. However, no convincing evidence for acute cholecystitis. 3. Hepatic steatosis. 4. Exam mildly compromised by suboptimal penetration. Obscured pancreas. ACT 112: Negative or not required by law. Electronically signed by: Delfin Rodriguez M.D. 02/24/2025 9:03 AM
--- NOTE | 2025-02-24 09:31 | Electrocardiogram Report ---
Test Reason : Blood Pressure : */* mmHG Vent. Rate : 83 BPM Atrial Rate : 83 BPM P-R Int : 144 ms QRS Dur : 88 ms QT Int : 372 ms P-R-T Axes : 11 18 18 degrees QTcB Int : 437 ms Normal sinus rhythm Normal ECG When compared with ECG of 02-Nov-2013 06:33, HR has increased Confirmed by Darrin Guy ([id number]) on 02/24/2025 9:30:54 AM Referred By: REFERRED SELF Confirmed By: Darrin Guy
[2025-02-24] MEDS: ASPIRIN 81 MG ECTAB PO SCH (09:54)
[2025-02-24] MEDS: SERTRALINE HCL 100 MG TABLET PO SCH (09:55)
[2025-02-24] MEDS: METOPROLOL SUCC 50MG EXT REL TAB PO SCH (09:55)
[2025-02-24] MEDS: THIAMINE HCL 100 MG in SYRINGE 9 ML IV SCH (10:00)
[2025-02-24] MEDS: FOLIC ACID 1 MG in SYRINGE 9.8 ML IV SCH (10:00)
[2025-02-24 11:54] LABS: Hematocrit (blood only) 35.9 % (42.0-52.0); Hemoglobin 12.5 g/dl (14.0-18.0); Mean Corpuscular Hemoglobin 34.2 pg (25.0-34.0); Mean Corpuscular Volume 98.1 fL (80.0-100.0); Platelet Count 122 K/uL (130-400); RDW Standard Deviation 46.4 fL (36.4-46.3); Red Blood Count 3.66 M/uL (4.70-6.10); White Blood Count 4.55 K/ul (4.8-10.8)
[2025-02-24 12:02] LABS: Alanine Aminotransferase 150.0 U/L (7-52); Albumin Globulin Ratio 1.9 (0.9-2); Alkaline Phosphatase 49.0 U/L (34-104); Anion Gap 8.0 (3-11); Bilirubin,Total 1.2 mg/dl (0.2-1.0); Blood Urea Nitrogen 24.0 mg/dl (6-23); Calcium 8.9 mg/dl (8.6-10.3); Carbon Dioxide 29.0 mmol/L (21-32); Chloride 101.0 mmol/L (98-107); Creatinine Clr Calc Pharmacy 68.8 ml/min; Globulin 2.1 gm/dl (2.5-4.0); Glucose 95.0 mg/dl (70-99(Fasting)); Potassium 3.5 mmol/L (3.5-5.1); Sodium 138.0 mmol/L (136-145); Total Protein 6.0 gm/dl (6.0-8.3)
--- NOTE | 2025-02-24 14:43 | Gastrointestinal Consultation ---
Date of Consultation February 24, 2025 Assessment & Plan (1) Regurgitation of food: (2) Transaminitis: Plan Patient with concerns of regurgitation after eating and loss of appetite. he denies any dysphagia to me. He had some transaminitis on this admission which is new but LFTs are improving. He has a history of chronic alcohol use. US of liver suggestive of fatty liver. - continue with protonix 40mg bid. - Can consider EGD next week if still inpatient vs having done as an outpatient. - continue to trend LFTs. - recommend cessation of alcohol. -Further recommendations to come with Supervising GI provider on medical rounds. Please see co-signature comments. Supervising Physician Co-Signing Physician Notes The patient was seen and examined. Hospital labs, data, records and imaging were reviewed at length. The case was discussed and reviewed with the GI advanced practitioner and I agree with his assessment plan as outlined above. The patient has symptoms which are suggestive of regurgitation rather than any lorna vomiting or dysphagia per se. Empiric use of proton pump inhibitor is advised. EGD is reasonable. The patient is amenable to outpatient upper endoscopy which can be arranged in the near future. While the patient likely has a mild alcoholic hepatitis it does not appear to he has any significant portal hypertensive changes or cirrhosis. 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 GI was asked to see for dysphagia and regurgitation. He tells me that this has been ongoing for the past month. He does not appreciate any dysphagia, rather, he tells me that he does not have an appetite and he will bring up liquids about an hour after eating. This has been ongoing for the past month. He had some transaminitis on this admission. Normal LFTs back in June of this year. He does use alcohol regularly. LFTs have been improving during inpatient stay. US suggestive of fatty liver. he denies nausea, acid reflux, changes in bowels. 02/24/25 wbc 4.55, hgb 12.5, hct 35.9, plts 122, INR 1, Na 138, K 3.5, BUN 24, Cr 1.14, T bili 1.2, AST 87, ALT 150, ALK 49, Nh3 31. US Liver - 02/24/25 1. No gallstones or biliary ductal dilatation. 2. Mild gallbladder wall thickening, a nonspecific finding. However, no convincing evidence for acute cholecystitis. 3. Hepatic steatosis. 4. Exam mildly compromised by suboptimal penetration. Obscured pancreas. Allergies Allergy/AdvReac Type Severity Reaction Status Date / Time Penicillins Allergy Unknown HAPPENED Verified 02/23/25 20:56 A SMALL CHILD Home Medications Medication Instructions Recorded Confirmed Type aspirin 81 mg tablet,delayed 81 mg PO DAILY 08/21/20 02/23/25 History release (Adult Aspirin Regimen) hydrochlorothiazide 25 mg tablet 25 mg PO DAILY Hypertension #90 03/07/24 02/23/25 Rx tabs sertraline 100 mg tablet 200 mg (2 x 100 mg) PO DAILY #180 06/22/24 02/23/25 Rx tabs metoprolol succinate 100 mg 100 mg PO DAILY #90 tabs 11/15/24 02/23/25 Rx tablet,extended release 24 hr amlodipine 10 mg tablet 10 mg PO DAILY 02/23/25 02/23/25 History atorvastatin 80 mg tablet 80 mg PO DAILY 02/23/25 02/23/25 History lisinopril 30 mg tablet 30 mg PO DAILY 02/23/25 02/23/25 History Patient History Medical History History of cerebral artery occlusion with cerebral infarction History of carotid artery dissection History of cerebral infarction history of lunar infarct Left carotid artery occlusion (11/01/13) Surgical History No history of previous surgery Family History Father Myocardial infarction Mother Diabetes Bipolar disorder Sister No problems noted. Denies family history of Ovarian cancer Prostate cancer Breast cancer Colorectal cancer Social History Smoking Status: Former smoker Tobacco Type: Smokeless Tobacco (Dip or Chew) Second Hand Exposure: No; Do You Dip or Chew Tobacco: Yes; Hx Alcohol Use: Yes Alcohol type: hard liquor Hx Substance Use: Yes Last Used Substance: Unknown Last Used Substance Other:: 2 x per year Preferred Language: Malay Communication Ability: Effective Visual Impairment: No Limitations Hearing Ability: Normal Beliefs That Will Affect Care: None marital status: Current Living Situation: Other Current Living Situation Comment: friend current occupational status: retired Other Information That Helps Us Care for You: No Feels Safe at Home: Yes Safety Concerns: Feels Safe At This Time Childhood Exposure to Second-Hand Smoke: Yes Diet: low salt and regular caffeine: Yes Dental Care, Regularly: No Physical Activity Frequency: Daily Seatbelt Use: always Sunscreen Use: Yes Assistive Devices: None Review of Systems Review of Systems: All systems reviewed & are unremarkable except as noted in HPI & below Physical Exam Constitutional: WD/WN, vitals as above Respiratory: normal respiratory effort, lungs clear to auscultation Cardiovascular: Rate/Rhythm: regular rate and regular rhythm Gastrointestinal (Abdomen): normal bowel sounds, soft, nontender, no hepatosplenomegaly Psychiatric: Orientation: alert and oriented x 3 Affect: euthymic affect Results & Data Vital Signs (Past 12 Hours) Vital Signs Temp Pulse Pulse Resp BP Pulse Ox O2 Del Method 02/24/25 11:31 98.6 F 64 18 157/89 H 93 Room Air 02/24/25 07:32 98.4 F 58 L 18 159/97 H 95 Room Air 02/24/25 07:28 56 L 02/24/25 05:21 98.8 F 59 L 18 174/110 H 95 Room Air Coding Level of Care Code 05143 IN/OBS CONSULT LVL 4,60M Diagnoses Regurgitation of food R11.10 Transaminitis R74.01
[2025-02-24 15:49] LABS: Iron 73.0 mcg/dl (35-175); Transferrin 205.0 mg/dl (200-360)
[2025-02-24 16:10] LABS: Ferritin 523.0 ng/ml (8-388)
[2025-02-24] MEDS: METOCLOPRAMIDE HCL 5 MG TABLET PO SCH (16:45)
[2025-02-24 18:18] LABS: Vitamin B12 368 pg/ml (180-914)
[2025-02-24 18:19] LABS: Folate (Folic Acid),Ser orPlas > 22.30 ng/ml (>5.38)
[2025-02-24] MEDS: PANTOprazole 40 MG/10 ML SYR IV SCH (20:42)
[2025-02-24] MEDS: NICOTINE 14 MG/24 HR PATCH TD SCH (21:19)
[2025-02-24 22:54] VITALS: RESP 18
[2025-02-25 06:15] LABS: Hematocrit (blood only) 36.6 % (42.0-52.0); Hemoglobin 13.1 g/dl (14.0-18.0); Immature Granulocytes # (auto) 0.03 K/uL (0.01-0.20); Immature Granulocytes % (auto) 0.7 %; Mean Corpuscular Hemoglobin 35.2 pg (25.0-34.0); Mean Corpuscular Volume 98.4 fL (80.0-100.0); Platelet Count 128 K/uL (130-400); RDW Standard Deviation 45.8 fL (36.4-46.3); Red Blood Count 3.72 M/uL (4.70-6.10); White Blood Count 4.34 K/ul (4.8-10.8)
[2025-02-25 06:32] LABS: Alanine Aminotransferase 121.0 U/L (7-52); Alkaline Phosphatase 53.0 U/L (34-104); Bilirubin,Total 1.2 mg/dl (0.2-1.0); Total Protein 6.0 gm/dl (6.0-8.3)
[2025-02-25] MEDS: REMOVE NICODERM PATCH SCH (10:31)
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
[2025-02-25 11:23] LABS: Hep B Surface Ag with confirm Negative (Negative)
[2025-02-25 11:29] LABS: Hep C Ab Rflx HepCQuant RNA Negative (Negative)
[2025-02-25 11:45] VITALS: TEMP 99.3; O2SAT 93
[2025-02-25 12:31] VITALS: BP 183/104; PULSE 57
== END 2025-02-25 13:23 | disposition home or self-care (01) ==
LOC: 2N 19:17 → ED 19:17 → SUATTDRO 02-24 01:02 → 2N 02-24 01:42

== ENCOUNTER 2025-03-23 17:33 | Inpatient (IN) ==
[2025-03-23 17:59] LABS: Base Excess VBG 4.2 mEq/L; HCO3 VBG 30 mmol/L; Oxygen Saturation VBG < 60.0 %; PCO2 VBG 50 mmHg (38-50); PO2 VBG < 20 mmHg; pH VBG 7.39 (7.36-7.41)
[2025-03-23] MEDS: LORazepam 1 MG/1 ML SYR ED Inj Use IV STA ×4 (18:08→19:44)
[2025-03-23] MEDS: SODIUM CHLORIDE 0.9% 1,000 ML IV ONE ×2 (18:08→18:59)
[2025-03-23] MEDS: LORazepam 1 MG/1 ML SYR ED Inj Use ONE (18:08)
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
[2025-03-23 18:20] LABS: Anion Gap 14.0 (3-11); Blood Urea Nitrogen 27.0 mg/dl (6-23); Carbon Dioxide 28.0 mmol/L (21-32); Chloride 98.0 mmol/L (98-107); Potassium 2.9 mmol/L (3.5-5.1); Sodium 140.0 mmol/L (136-145)
[2025-03-23 18:21] LABS: Calcium 9.7 mg/dl (8.6-10.3); Creatinine Clr Calc Pharmacy 50.4 ml/min; Glucose 107.0 mg/dl (70-99(Fasting))
[2025-03-23 18:28] LABS: Alanine Aminotransferase 51.0 U/L (7-52); Albumin Globulin Ratio 1.6 (0.9-2); Albumin Level 4.2 gm/dl (3.4-5.0); Alkaline Phosphatase 58.0 U/L (34-104); Bilirubin,Total 1.3 mg/dl (0.2-1.0); Globulin 2.7 gm/dl (2.5-4.0); INR 1.0 (0.9-1.1); Lipase 39.0 U/L (11-82); Partial Thromboplastin Time 25 Seconds (21-31); Prothrombin Time 10.7 Seconds (9.0-12.0); Total Protein 6.9 gm/dl (6.0-8.3)
[2025-03-23 18:42] LABS: Creatine Kinase 4183.0 U/L (30-223)
--- NOTE | 2025-03-23 18:56 | CT Scan Report ---
EXAM: CT cervical spine CLINICAL HISTORY: Trauma, fall, EtOH, aggressive/combative. TECHNIQUE: Contiguous axial images were obtained through the cervical spine without the use of intravenous contrast. Sagittal and coronal reformations are supplied. PRIORS: None FINDINGS: Bone stock is normal. Lordotic straightening is noted. No acute cervical spine fracture or facet dislocation. Moderate degenerative change present at C4-C5 through C6/C7 with moderate loss of intervertebral disc height, endplate changes, anterior and posterior osteophytes. No prevertebral soft tissue swelling. Visualized trachea is patent. Asymmetry of the submandibular glands with a soft tissue rim surrounding the posterior aspect of the right submandibular gland, asymmetric with the left, images 372 through 459 on series 16. The glands themselves are similar in size and attenuation the soft tissue rim measures approximately 62 Hounsfield unit and measures 4 mm in anteroposterior thickness with no surrounding inflammatory change or adenopathy. No subcutaneous gas. IMPRESSION: 1. No CT evidence of an acute osseous abnormality. 2. Asymmetric submandibular glands with a rim of soft tissue or high attenuating fluid tracking posterior to the right submandibular gland. The Hounsfield units of 60 may suggest blood products and could represent a traumatic injury, given the asymmetry and clinical history. No adjacent subcutaneous soft tissue swelling. When the patient is able, CT of the neck with contrast could be considered or ultrasound, in an attempt to further characterize this finding. Close clinical follow-up suggested. Alternatively, if prior imaging is available, this would be extremely helpful for comparison. ACT 112: Positive. There are findings on this examination that require communication between the performing entity and the patient following Patient Test Result Information Act ([place] ACT 112) guidelines. Electronically signed by Ayana Soto 03-23-2025 6:56 PM
--- NOTE | 2025-03-23 18:56 | CT Scan Report ---
EXAMINATION: Chest CT without CLINICAL HISTORY: Trauma, fall, EtOH, aggressive/combative. COMPARISON: None TECHNIQUE: Contiguous axial images were obtained through the chest without the use of intravenous contrast. Sagittal and coronal reformations are supplied. FINDINGS: Chest is well-expanded. No pulmonary contusion, pneumothorax or pleural effusion. Right posterior deformed rib from chronic fracture. Multilevel anterior bridging osteophytes of the mid to lower thoracic spine. The sternum, clavicles, and ribs demonstrate no acute displaced fracture. Hyoid bone is intact. Heart size within normal limits. No pericardial effusion. No adenopathy. Trachea and mainstem bronchi are patent. Thyroid is normal in size. No adenopathy. No subcutaneous inflammatory change or hematoma in the chest wall or back. IMPRESSION: No CT evidence of an acute or traumatic abnormality in the chest. Electronically signed by Ayana Soto 03-23-2025 6:56 PM
--- NOTE | 2025-03-23 18:56 | CT Scan Report ---
EXAMINATION: Abdomen and pelvis CT without CLINICAL HISTORY: Trauma, fall, EtOH, aggressive/combative. PRIORS: None TECHNIQUE: Contiguous axial images were obtained through the abdomen and pelvis without the use of intravenous contrast. Sagittal and coronal reformations are supplied. FINDINGS: Hypoventilatory changes at the lung bases. Chest CT dictated under separate heading. Evaluation of solid organs is limited without the use of intravenous contrast. Allowing for this, hepatomegaly and fatty infiltration of the liver present. No solid organ laceration or subcapsular hematoma. No hemoperitoneum. The gallbladder is unremarkable. Noncontrast pancreas, spleen, under distended stomach, adrenals, aorta and IVC are morphologically unremarkable. Small hiatal hernia is noted. Kidneys are symmetric. No retroperitoneal hemorrhage. Left renal low-attenuation lesion, possibly a cyst and not further characterized. No ascites, adenopathy or extraluminal gas. Moderate enlargement of the prostate. Urinary bladder under distended. No free fluid or adenopathy in the pelvis. Moderate diverticulosis of the sigmoid colon. No soft tissue swelling or hematoma in the subcutaneous tissues of the abdominal wall or back. Moderate degenerative change throughout the spine. No acute fracture. No pelvic fracture identified. Moderate degenerative change of the hips. IMPRESSION: 1. No CT evidence of an acute or traumatic abnormality in the abdomen or pelvis. 2. Hepatomegaly and fatty infiltration of the liver. 3. Prostate enlargement Electronically signed by Ayana Soto 03-23-2025 6:56 PM
--- NOTE | 2025-03-23 18:56 | CT Scan Report ---
EXAMINATION: Head CT without CLINICAL HISTORY: Trauma, fall, EtOH, aggressive/combative. PRIORS: 02/23/2025 TECHNIQUE: Contiguous axial images were obtained through the head without the use of intravenous contrast. Sagittal and coronal reformations are supplied. FINDINGS: Motion artifact degrades image quality. Moderate parenchymal volume loss noted. Moderate size right MCA stroke with a chronic appearance, unchanged. Chamberlain-white differentiation is preserved. No edema or midline shift. No intra-axial or extra-axial hemorrhage. Ventricles are normal in size and configuration. Brainstem and cerebellum have a normal appearance. Calvarium unremarkable. Moderate bilateral maxillary sinus mucosal thickening. Mastoid air cells are well-pneumatized. Globes are intact. No retrobulbar abnormality. IMPRESSION: 1. No CT evidence of an acute intracranial abnormality. 2. Chronic appearing right MCA stroke, unchanged Electronically signed by Ayana Soto 03-23-2025 6:56 PM
--- NOTE | 2025-03-23 18:56 | CT Scan Report ---
EXAMINATION: CT facial bones without PROCEDURE: Contiguous axial images were obtained through the facial bones without the use of intravenous contrast in bone windows. Sagittal and coronal reformations are supplied. COMPARISON: None INDICATION: Trauma, fall, EtOH, aggressive/combative. FINDINGS: Dental amalgam creates beam hardening artifact. Moderate bilateral maxillary sinus mucosal thickening. Mild osseous demineralization noted. The bony orbits, zygomatic arches, maxilla and mandible demonstrate no acute fracture. Nasal bone unremarkable. Dens is intact. Again noted is mild soft tissue attenuation posterior to the right submandibular gland, dictated under the neck CT. Floor of the mouth and base of the tongue have a normal appearance. No soft tissue swelling in the face. PRESSION: No CT evidence of an acute facial abnormality. Electronically signed by Ayana Soto 03-23-2025 6:56 PM
[2025-03-23 19:02] LABS: Hematocrit (blood only) 39.9 % (42.0-52.0); Hemoglobin 14.4 g/dl (14.0-18.0); Immature Granulocytes # (auto) 0.05 K/uL (0.01-0.20); Immature Granulocytes % (auto) 0.6 %; Mean Corpuscular Hemoglobin 35.8 pg (25.0-34.0); Mean Corpuscular Volume 99.3 fL (80.0-100.0); Platelet Count 108 K/uL (130-400); RDW Standard Deviation 48.3 fL (36.4-46.3); Red Blood Count 4.02 M/uL (4.70-6.10); White Blood Count 8.68 K/ul (4.8-10.8)
--- NOTE | 2025-03-23 19:02 | XRay Report ---
Exam: Chest one view portable. Reason for exam: Trauma, patient is uncooperative and not holding still. Previous studies: 02/23/2025 FINDINGS: Cardiac size remains normal. Subacute right rib fractures stable. No acute lung infiltrate, collapse or edema is seen at this time. No pneumothorax is visualized. IMPRESSION: 1. Negative for acute disease on portable chest radiograph. 2. Persistent subacute right rib fractures. Electronically signed by Royal Le 03-23-2025 7:01 PM
--- NOTE | 2025-03-23 19:04 | XRay Report ---
Exam: X-ray pelvis one to 2 views routine. Reason for exam: Trauma Previous studies: None FINDINGS: Mild DJD seen on both hips. No acute fracture, dislocation or destructive lesion is evident at this time. IMPRESSION: Negative for acute bony trauma. Electronically signed by Royal Le 03-23-2025 7:04 PM
[2025-03-23] MEDS ORDERED: PHENobarbital PO Alcohol Withdrawal PO STA ×2 (20:12→22:36)
[2025-03-23 20:23] LABS: Magnesium 1.8 mg/dl (1.7-2.4)
[2025-03-23] MEDS: PROPOFOL BOLUS FROM BAG IV PRN (20:32)
[2025-03-23] MEDS ORDERED: STAT IV Infusion **Titration per Protocol STA ×2 (20:48→22:36)
--- NOTE | 2025-03-23 20:49 | History & Physical Report ---
Date of Service March 23, 2025 Assessment & Plan (1) Encephalopathy acute: (2) Hemorrhage from larynx: (3) Hypertension: (4) Hypercholesterolemia: (5) Rhabdomyolysis: Plan 64yo male with history of prior CVA, possible EtOH use disorder presenting with acute encephalopathy, agitation. Patient intubated for airway protection. #Encephalopathy, acute - patient unable to answer questions or follow commands. Very agitated in the ER requiring 5-6 people to hold him. Soft limb restraints temporarily placed for patient safety. Etiology unclear. Uncertain how much alcohol patient drinks. During prior admission he admitted to 1-2 drinks per night, no history of withdrawals. Family and friend are unsure of how much he drinks. Possible complicated EtOH withdrawal, possible Wernicke's, possible CVA -Admit to MICU -Continue ventilator support for now -Propofol gtt -Fentanyl PRN -Will initiate phenobarbital for presumed EtOH withdrawal -Thiamine 500mg IV q 8 hours -Restraints as needed -Check MRI brain #Hemorrhage from airway - patient noted to have blood in his mouth at time of intubation. CT as above with concern for active hemorrhage. -Packing to be placed -Repeat CT in the AM -Zosyn started as air noted on imaging, possible infection -ENT consultation appreciated #Rhabdomyolysis - elevated CK at 4325, patient quite agitated -Continue LR at 150mL/hr -Repeat CK and BMP in AM #Hypertension -Hold Lisinopril, Amlodipine and Metoprolol for now #Hyperlipidemia -Hold Atorvastatin for now #Anxiety/Depression -Hold Sertraline for now #Hypokalemia - K=2.9 - ordered 40mEq PO + 40mEq IV -Repeat BMP in AM #Elevated troponin - No ischemic changes on EKG -Trend troponin History of Present Illness Chief Complaint: agitation Primary Care Provider: Bhavani Mott MD Keith Lopez is a 64yo male with history of prior CVA presenting with acute confusion. Patient is unable to provide history due to agitation and acute encephalopathy. Patient's friend and neighbor, Khari Martines , is at bedside and provides some history. She reports that patient has been in his usual state of health. She last saw him doing well yesterday 03/22/25 at 21:30. She left for work early this AM and patient was still sleeping. When she got home around 16:30 she found the patient passed out leaning against the wall of the living room. The home was in total disarray and destroyed - Khari had photos on her phone which revealed broken furniture such as a kitchen table that was broken in half. Khari states that patient drinks alcohol fairly regularly but is not sure how much he drinks alcohol or when his last drink was. She does not know if he has ever had complicated EtOH withdrawal before. She states that patient is fairly functional at home but she has noted he is "not as sharp" as he used to be and requires help managing taxes and finances. Spoke with patient's sister - Jami Montalvo. She is unaware of any EtOH abuse of history of withdrawal. She reports that patient has not been eating well since February and has been more sleepy. Patient was admitted to [facility] from 02/24 - 02/25 after presenting with confusion following a fall. Patient's mentation improved following IVF. In the ER patient was severely agitated. He was administered Lorazepam as well as Valium. Patient continued to be combative Ultimately intubated for airway protection. Noted to have evidence of tongue injury with blood in the mouth and airway. ER Course: Ativan 4mg IV NSS x 2L Valium 10mg IV Propofol drip Fentanyl 100mcg Thiamine 500mg IV POINT OF CONTACT: Khari Martines - friend and neighbor Jami Montalvo - sister and next of kin - [phone] Allergies Allergy/AdvReac Type Severity Reaction Status Date / Time Penicillins Allergy Unknown HAPPENED Verified 02/23/25 20:56 A SMALL CHILD Home Medications Medication Instructions Recorded Confirmed Type aspirin 81 mg tablet,delayed 81 mg PO DAILY 08/21/20 02/23/25 History release (Adult Aspirin Regimen) sertraline 100 mg tablet 200 mg (2 x 100 mg) PO DAILY #180 06/22/24 02/23/25 Rx tabs metoprolol succinate 100 mg 100 mg PO DAILY #90 tabs 11/15/24 02/23/25 Rx tablet,extended release 24 hr amlodipine 10 mg tablet 10 mg PO DAILY 02/23/25 02/23/25 History atorvastatin 80 mg tablet 80 mg PO DAILY 02/23/25 02/23/25 History lisinopril 30 mg tablet 30 mg PO DAILY 02/23/25 02/23/25 History cyanocobalamin (vitamin B-12) 1,000 mcg PO DAILY #30 caps 02/25/25 Rx 1,000 mcg capsule pantoprazole 40 mg tablet,delayed 40 mg PO DAILY #30 tabs 02/25/25 Rx release (Protonix) Past Med/Surg History Problem List Hemorrhage from larynx Laryngeal injury On mechanically assisted ventilation Falls Encephalopathy acute NSTEMI (non-ST elevated myocardial infarction) Alcohol use disorder Rhabdomyolysis Acute kidney injury Regurgitation of food Transaminitis Chest wall contusion (Acute) Sleep walking Renal calculus Anxiety and depression Hypercholesterolemia (Acute) Residual cognitive deficit as late effect of stroke (Acute) Vitamin D deficiency (Acute) Hypertension (Acute 11/01/11) Medical History History of cerebral artery occlusion with cerebral infarction History of carotid artery dissection History of cerebral infarction history of lunar infarct Left carotid artery occlusion (11/01/13) Surgical History No history of previous surgery Family History Father Myocardial infarction Mother Diabetes Bipolar disorder Sister No problems noted. Denies family history of Ovarian cancer Prostate cancer Breast cancer Colorectal cancer Social History Smoking Status: Unknown if ever smoked Tobacco Type: Smokeless Tobacco (Dip or Chew) Second Hand Exposure: No; Do You Dip or Chew Tobacco: Yes; Preferred Language: Bruneian Communication Ability: Unable Visual Impairment: No Limitations Hearing Ability: Normal Beliefs That Will Affect Care: None marital status: Current Living Situation: Other Current Living Situation Comment: [facility] current occupational status: retired Feels Safe at Home: Declines to Answer Childhood Exposure to Second-Hand Smoke: Yes Diet: low salt and regular caffeine: Yes Dental Care, Regularly: No Physical Activity Frequency: Daily Seatbelt Use: always Sunscreen Use: Yes Assistive Devices: None Review of Systems Review of Systems: Unobtainable due to cognitive status Physical Exam Physical Exam: General: patient agitated, not following commands or responding to questioning, patient poorly kempt Skin: scattered bruises and eschar on LE, knees, forearms and hands HEENT: PERRL, MMM, swelling to tongue, trachea midline Heart: +S1/S2, regular, tachycardic, no m/r/g Lungs: equal air entry bilaterally, no rales/rhonchi/wheezes Abd: +BS, soft, ND, no masses/organomegaly/ascites Ext: warm, 2+ pulses in UE/LE bilaterally, no clubbing/cyanosis or edema Neuro: patient severely agitated, not following commands or answering questions. Results & Data Results & Data Vital Signs (Past 12 Hours) Vital Signs Temp Pulse Pulse Resp BP BP Pulse Ox 03/23/25 20:01 97 H 22 159/88 H 93 03/23/25 20:00 36.7 C 97 H 22 159/88 H 93 03/23/25 19:00 84 16 195/131 H 97 03/23/25 18:41 88 22 187/110 H 98 03/23/25 17:56 93 H 03/23/25 17:26 36.3 C L 101 H 25 H 191/118 H 98 03/23/25 17:26 36.3 C L 101 H 25 H 191/118 H 96 O2 Del Method O2 Flow Rate 03/23/25 20:01 Room Air 03/23/25 20:00 Room Air 03/23/25 19:00 Room Air 03/23/25 18:41 Room Air 03/23/25 17:56 03/23/25 17:26 Room Air 0 03/23/25 17:26 Room Air Laboratory Results Laboratory Results WBC 8.68 K/ul (4.8-10.8) 03/23/25 17:45 RBC 4.02 M/uL (4.70-6.10) L 03/23/25 17:45 Hgb 14.4 g/dl (14.0-18.0) 03/23/25 17:45 POC Hgb 11.2 g/dl (14.0-18.0) L 03/23/25 22:08 Hct 39.9 % (42.0-52.0) L 03/23/25 17:45 POC Hct 33 % (42-52) L 03/23/25 22:08 MCV 99.3 fL (80.0-100.0) 03/23/25 17:45 MCH 35.8 pg (25.0-34.0) H 03/23/25 17:45 MCHC 36.1 g/dL (32.0-36.0) H 03/23/25 17:45 RDW Std Deviation 48.3 fL (36.4-46.3) H 03/23/25 17:45 RDW Coeff of Michael 13.1 % (11.5-14.5) 03/23/25 17:45 Plt Count 108 K/uL (130-400) L 03/23/25 17:45 MPV 9.3 fL (9.4-12.4) L 03/23/25 17:45 Immature Gran % (Auto) 0.6 % 03/23/25 17:45 Neut % (Auto) 81.5 % 03/23/25 17:45 Lymph % (Auto) 5.1 % 03/23/25 17:45 Cross % (Auto) 12.6 % 03/23/25 17:45 Eos % (Auto) 0.0 % 03/23/25 17:45 Baso % (Auto) 0.2 % 03/23/25 17:45 Neut # (Auto) 7.08 K/uL (1.40-6.50) H 03/23/25 17:45 Lymph # (Auto) 0.44 K/uL (1.20-3.40) L 03/23/25 17:45 Cross # (Auto) 1.09 K/uL (0.11-0.59) H 03/23/25 17:45 Eos # (Auto) 0.00 K/uL (0.00-0.50) 03/23/25 17:45 Baso # (Auto) 0.02 K/uL (0.00-0.20) 03/23/25 17:45 Immature Gran # (Auto) 0.05 K/uL (0.01-0.20) 03/23/25 17:45 PT 10.7 Seconds (9.0-12.0) 03/23/25 17:45 INR 1.0 (0.9-1.1) 03/23/25 17:45 APTT 25 Seconds (21-31) 03/23/25 17:45 PTT Ratio 0.9 03/23/25 17:45 Specimen Type Arterial 03/23/25 22:08 Sample Site R Radial 03/23/25 22:08 POC pH 7.39 (7.35-7.45) 03/23/25 22:08 POC pCO2 41 mmHg (35-46) 03/23/25 22:08 POC pO2 122 mmHg (80-95) H 03/23/25 22:08 POC HCO3 25 mmol/L (19-24) H 03/23/25 22:08 POC Total CO2 26 mmol/L (24-31) 03/23/25 22:08 POC Base Excess 0.0 mmol/L (-9-1.8) 03/23/25 22:08 O2 Sat Pulse Oximetry 99 03/23/25 22:08 ABG pH (Temp Correct) 7.388 (7.35-7.45) 03/23/25 22:08 ABG pCO2 (Temp Corrct 41 mmHg (35-46) 03/23/25 22:08 POC ABG pO2 at Pt Temp 122 03/23/25 22:08 POC ABG O2 Sat 99.0 % (90-95) H 03/23/25 22:08 Luis Angel Test Pass 03/23/25 22:08 VBG pH 7.39 (7.36-7.41) 03/23/25 17:48 VBG pCO2 50 mmHg (38-50) 03/23/25 17:48 VBG pO2 < 20 mmHg 03/23/25 17:48 VBG HCO3 30 mmol/L 03/23/25 17:48 VBG O2 Saturation < 60.0 % 03/23/25 17:48 VBG Base Excess 4.2 mEq/L 03/23/25 17:48 POC Sodium 138 mmol/L (135-144) 03/23/25 22:08 Sodium 140 mmol/L (136-145) 03/23/25 17:45 POC Potassium 2.6 mmol/L (3.3-5.0) L 03/23/25 22:08 Potassium 2.9 mmol/L (3.5-5.1) L 03/23/25 17:45 POC Chloride 97 mmol/L (101-112) L 03/23/25 17:47 Chloride 98 mmol/L (98-107) 03/23/25 17:45 Carbon Dioxide 28 mmol/L (21-32) 03/23/25 17:45 POC Total CO2 26 mmol/L (24-31) 03/23/25 17:47 Anion Gap 14 (3-11) H 03/23/25 17:45 POC Anion Gap 18.0 mmol/L (16-25) 03/23/25 17:47 POC BUN 27 mg/dl (7-18) H 03/23/25 17:47 BUN 27 mg/dl (6-23) H 03/23/25 17:45 Creatinine 1.51 mg/dl (0.6-1.4) H 03/23/25 17:45 POC Creatinine 1.6 mg/dl (0.6-1.3) H 03/23/25 17:47 Est Cr Clr Drug Dosing 50.4 ml/min 03/23/25 17:45 eGFR 50.94 03/23/25 17:45 BUN/Creatinine Ratio 17.9 (10-20) 03/23/25 17:45 Glucose 107 mg/dl (70-99(Fasting)) H 03/23/25 17:45 POC Glucose 107 mg/dl (70-99) H 03/23/25 23:34 POC Glucose (other) 104 mg/dl (70-99) H 03/23/25 17:47 Lactate 0.9 mmol/L (0.4-2.0) 03/23/25 22:37 Calcium 9.7 mg/dl (8.6-10.3) 03/23/25 17:45 POC Ioniz Calcium Sylwia 1.14 mmol/l (1.12-1.32) 03/23/25 17:47 Phosphorus 3.4 mg/dl (2.5-4.9) 03/23/25 17:45 Magnesium 1.8 mg/dl (1.7-2.4) 03/23/25 17:45 Total Bilirubin 1.3 mg/dl (0.2-1.0) H 03/23/25 17:45 AST 68 U/L (13-39) H 03/23/25 17:45 ALT 51 U/L (7-52) 03/23/25 17:45 Alkaline Phosphatase 58 U/L (34-104) 03/23/25 17:45 Ammonia 36.0 umol/L (18-72) 03/23/25 17:48 Total Creatine Kinase 4325 U/L (30-223) H 03/23/25 20:06 Troponin I High Sens 140.3 pg/ml (0-20) H* 03/23/25 22:38 Total Protein 6.9 gm/dl (6.0-8.3) 03/23/25 17:45 Albumin 4.2 gm/dl (3.4-5.0) 03/23/25 17:45 Globulin 2.7 gm/dl (2.5-4.0) 03/23/25 17:45 Albumin/Globulin Ratio 1.6 (0.9-2) 03/23/25 17:45 Lipase 39 U/L (11-82) 03/23/25 17:45 Vitamin B12 421 pg/ml (180-914) 03/23/25 22:38 Folate 9.97 ng/ml (>5.38) 03/23/25 22:38 Procalcitonin 0.30 ng/ml (0-0.5) 03/23/25 17:50 Urine Color Dark Yellow 03/23/25 21:15 Urine Appearance Cloudy (Clear) A 03/23/25 21:15 Urine pH 5.5 (4.5-7.5) 03/23/25 21:15 Ur Specific [place] 1.023 (1.000-1.030) 03/23/25 21:15 Urine Protein 3+ (Negative) H 03/23/25 21:15 Urine Glucose (UA) Negative (Negative) 03/23/25 21:15 Urine Ketones Trace (Negative) H 03/23/25 21:15 Urine Blood 3+ (Negative) H 03/23/25 21:15 Urine Nitrite Negative (Negative) 03/23/25 21:15 Urine Bilirubin Negative (Negative) 03/23/25 21:15 Urine Urobilinogen Negative (Negative) 03/23/25 21:15 Ur Leukocyte Esterase Negative (Negative) 03/23/25 21:15 Urine WBC (Auto) 0-5 /hpf (0-5) 03/23/25 21:15 Urine RBC (Auto) 11-20 /hpf (0-2) H 03/23/25 21:15 U Hyaline Cast (Auto) 11-20 /lpf (0-2) H 03/23/25 21:15 U Epithel Cells (Auto) 0-2 /hpf (0-2) 03/23/25 21:15 Urine Bacteria (Auto) None Seen (None Seen) 03/23/25 21:15 Hyaline Casts Present /lpf (None Presnt) A 03/23/25 21:15 Urine Comment 03/23/25 21:15 Nasal Screen MRSA (PCR) Negative (Negative) 03/23/25 Unknown Urine Opiates Screen Neg (Neg) 03/23/25 21:15 Ur Methadone, Qual Neg (Neg) 03/23/25 21:15 Urine Fentanyl Screen Neg (Neg) 03/23/25 21:15 Urine Barbiturates Neg (Neg) 03/23/25 21:15 Ur Phencyclidine (PCP) Neg (Neg) 03/23/25 21:15 U Amphetamin/Meth Scrn Neg (Neg) 03/23/25 21:15 MDMA (Ecstasy) Screen Neg (Neg) 03/23/25 21:15 U Benzodiazepines Scrn Pos (Neg) H 03/23/25 21:15 Ur Cocaine Metabolite Neg (Neg) 03/23/25 21:15 U Marijuana (THC) Screen Neg (Neg) 03/23/25 21:15 Ethyl Alcohol mg/dL < 10.0 mg/dl (<10.0) 03/23/25 17:48 Impressions Pelvis X-Ray 03/23/25 17:41 Exam: X-ray pelvis one to 2 views routine. Reason for exam: Trauma Previous studies: None FINDINGS: Mild DJD seen on both hips. No acute fracture, dislocation or destructive lesion is evident at this time. IMPRESSION: Negative for acute bony trauma. Electronically signed by Royal Le 03-23-2025 7:[address] 03/23/25 17:42 EXAM: CT cervical spine CLINICAL HISTORY: Trauma, fall, EtOH, aggressive/combative. TECHNIQUE: Contiguous axial images were obtained through the cervical spine without the use of intravenous contrast. Sagittal and coronal reformations are supplied. PRIORS: None FINDINGS: Bone stock is normal. Lordotic straightening is noted. No acute cervical spine fracture or facet dislocation. Moderate degenerative change present at C4-C5 through C6/C7 with moderate loss of intervertebral disc height, endplate changes, anterior and posterior osteophytes. No prevertebral soft tissue swelling. Visualized trachea is patent. Asymmetry of the submandibular glands with a soft tissue rim surrounding the posterior aspect of the right submandibular gland, asymmetric with the left, images 372 through 459 on series 16. The glands themselves are similar in size and attenuation the soft tissue rim measures approximately 62 Hounsfield unit and measures 4 mm in anteroposterior thickness with no surrounding inflammatory change or adenopathy. No subcutaneous gas. IMPRESSION: 1. No CT evidence of an acute osseous abnormality. 2. Asymmetric submandibular glands with a rim of soft tissue or high attenuating fluid tracking posterior to the right submandibular gland. The Hounsfield units of 60 may suggest blood products and could represent a traumatic injury, given the asymmetry and clinical history. No adjacent subcutaneous soft tissue swelling. When the patient is able, CT of the neck with contrast could be considered or ultrasound, in an attempt to further characterize this finding. Close clinical follow-up suggested. Alternatively, if prior imaging is available, this would be extremely helpful for comparison. ACT 112: Positive. There are findings on this examination that require communication between the performing entity and the patient following Patient Test Result Information Act ([place] ACT 112) guidelines. Electronically signed by Ayana Soto 03-23-2025 6:[address] 03/23/25 17:42 EXAMINATION: CT facial bones without PROCEDURE: Contiguous axial images were obtained through the facial bones without the use of intravenous contrast in bone windows. Sagittal and coronal reformations are supplied. COMPARISON: None INDICATION: Trauma, fall, EtOH, aggressive/combative. FINDINGS: Dental amalgam creates beam hardening artifact. Moderate bilateral maxillary sinus mucosal thickening. Mild osseous demineralization noted. The bony orbits, zygomatic arches, maxilla and mandible demonstrate no acute fracture. Nasal bone unremarkable. Dens is intact. Again noted is mild soft tissue attenuation posterior to the right submandibular gland, dictated under the neck CT. Floor of the mouth and base of the tongue have a normal appearance. No soft tissue swelling in the face. PRESSION: No CT evidence of an acute facial abnormality. Electronically signed by Ayana Soto 03-23-2025 6:[address] 03/23/25 17:42 EXAMINATION: Head CT without CLINICAL HISTORY: Trauma, fall, EtOH, aggressive/combative. PRIORS: 02/23/2025 TECHNIQUE: Contiguous axial images were obtained through the head without the use of intravenous contrast. Sagittal and coronal reformations are supplied. FINDINGS: Motion artifact degrades image quality. Moderate parenchymal volume loss noted. Moderate size right MCA stroke with a chronic appearance, unchanged. Chamberlain-white differentiation is preserved. No edema or midline shift. No intra-axial or extra-axial hemorrhage. Ventricles are normal in size and configuration. Brainstem and cerebellum have a normal appearance. Calvarium unremarkable. Moderate bilateral maxillary sinus mucosal thickening. Mastoid air cells are well-pneumatized. Globes are intact. No retrobulbar abnormality. IMPRESSION: 1. No CT evidence of an acute intracranial abnormality. 2. Chronic appearing right MCA stroke, unchanged Electronically signed by Ayana Soto 03-23-2025 6:56 PM Abdomen/Pelvis CT 03/23/25 17:50 EXAMINATION: Abdomen and pelvis CT without CLINICAL HISTORY: Trauma, fall, EtOH, aggressive/combative. PRIORS: None TECHNIQUE: Contiguous axial images were obtained through the abdomen and pelvis without the use of intravenous contrast. Sagittal and coronal reformations are supplied. FINDINGS: Hypoventilatory changes at the lung bases. Chest CT dictated under separate heading. Evaluation of solid organs is limited without the use of intravenous contrast. Allowing for this, hepatomegaly and fatty infiltration of the liver present. No solid organ laceration or subcapsular hematoma. No hemoperitoneum. The gallbladder is unremarkable. Noncontrast pancreas, spleen, under distended stomach, adrenals, aorta and IVC are morphologically unremarkable. Small hiatal hernia is noted. Kidneys are symmetric. No retroperitoneal hemorrhage. Left renal low-attenuation lesion, possibly a cyst and not further characterized. No ascites, adenopathy or extraluminal gas. Moderate enlargement of the prostate. Urinary bladder under distended. No free fluid or adenopathy in the pelvis. Moderate diverticulosis of the sigmoid colon. No soft tissue swelling or hematoma in the subcutaneous tissues of the abdominal wall or back. Moderate degenerative change throughout the spine. No acute fracture. No pelvic fracture identified. Moderate degenerative change of the hips. IMPRESSION: 1. No CT evidence of an acute or traumatic abnormality in the abdomen or pelvis. 2. Hepatomegaly and fatty infiltration of the liver. 3. Prostate enlargement Electronically signed by Ayana Soto 03-23-2025 6:[address] 03/23/25 17:50 EXAMINATION: Chest CT without CLINICAL HISTORY: Trauma, fall, EtOH, aggressive/combative. COMPARISON: None TECHNIQUE: Contiguous axial images were obtained through the chest without the use of intravenous contrast. Sagittal and coronal reformations are supplied. FINDINGS: Chest is well-expanded. No pulmonary contusion, pneumothorax or pleural effusion. Right posterior deformed rib from chronic fracture. Multilevel anterior bridging osteophytes of the mid to lower thoracic spine. The sternum, clavicles, and ribs demonstrate no acute displaced fracture. Hyoid bone is intact. Heart size within normal limits. No pericardial effusion. No adenopathy. Trachea and mainstem bronchi are patent. Thyroid is normal in size. No adenopathy. No subcutaneous inflammatory change or hematoma in the chest wall or back. IMPRESSION: No CT evidence of an acute or traumatic abnormality in the chest. Electronically signed by Ayana Soto 03-23-2025 6:56 PM Chest X-Ray 03/23/25 20:46 Exam(s): XR CXR 1 VIEW EXAM: XR Chest, 1 View CLINICAL HISTORY: Reason for exam: ETT. TECHNIQUE: Frontal view of the chest. COMPARISON: Prior chest x-ray from March 23, 2025. FINDINGS: There is a new endotracheal tube in place approximately 53 mm above the marcela. Lungs: Unremarkable. No consolidation. Pleural space: Unremarkable. No pneumothorax. Heart: Unremarkable. No cardiomegaly. Mediastinum: Unremarkable. Normal mediastinal contour. Bones/joints: There is diffuse osteopenia throughout the visualized bones. No acute fracture. IMPRESSION: New endotracheal tube in place approximately 53 mm above the marcela. Electronically signed by: Lou Alexandra MD 03/23/25 22:[address] 03/23/25 20:52 Exam(s): CT NECK SOFT TISSUE With Contrast IV Amt: 93 cc opti 320 EXAM: CT Neck With Intravenous Contrast CLINICAL HISTORY: Reason for exam: Possible traumatic injury. Oropharyngeal bleeding. TECHNIQUE: Axial computed tomography images of the neck with intravenous contrast. CTDI is 19.89 mGy and DLP is 682.73 mGy-cm. Automated exposure control was utilized for the study. A dose lowering technique was utilized adhering to the principles of ALARA. CONTRAST: Patient received 93 cc opti 320 of IV contrast COMPARISON: No relevant prior studies available. FINDINGS: Brain: Right parietal lobe encephalomalacia. Oropharynx: Unremarkable. No significant tonsillar enlargement. No peritonsillar abscess. Hypopharynx: Soft tissue edema in the mucosa/soft tissues marginating the right hypopharynx. Larynx: Epiglottis suboptimally characterized in the setting of endotracheal tube. Injury to the right aspect of the larynx with soft tissue edema and adjacent soft tissue gas. Small contrast blush in the thyroarytenoid muscle (series 3, image 329) may represent bleeding. Trachea: Endotracheal tube in place. Retropharyngeal space: Unremarkable. No retropharyngeal fluid collection. Submandibular/parotid glands: Unremarkable. Thyroid: Unremarkable. No enlarged or calcified nodules. Bones/joints: Degenerative changes in the cervical spine. No acute osseous findings. Soft tissues: Vasculature: Atherosclerotic vascular calcifications. Lymph nodes: Unremarkable. No lymphadenopathy. Calcified mediastinal lymph nodes suggesting chronic granulomatous disease. Sinuses: Mucosal thickening in the maxillary sinuses. Lung apices: Unremarkable as visualized. Tubes, lines and devices: Endotracheal tube in place, terminating above the marcela. IMPRESSION: Injury to the right aspect of the larynx with soft tissue edema and adjacent soft tissue gas. Small contrast blush in the thyroarytenoid muscle (series 3, image 329) may represent bleeding. Electronically signed by: Clark Garcia M.D. 03/23/25 22:24 PM Code Status & VTE Plan VTE Prophylaxis Plan VTE Prophylaxis will be ordered: Yes PG Care Time/CCT Total # of Minutes Spent Total Time Spent with Patient: Total time spent is greater than 50% in coordination of care (as documented) at patient's floor/unit and/or counseling patient: Coding Level of Care Code 86872 INT INP/OBS CARE 3/75MIN Diagnoses Encephalopathy acute G93.40 Hemorrhage from larynx R04.89 Hypertension I10 Hypercholesterolemia E78.00 Rhabdomyolysis M62.82
[2025-03-23] MEDS: RAPID SEQUENCE INDUCTION BAG ONE (20:54)
[2025-03-23] MEDS: PROPOFOL IV EMULSION 10 MG/ML 100 ML VIAL IV ONE (20:54)
[2025-03-23] MEDS: THIAMINE HCL 500 MG in SODIUM CHLORIDE 0.9% 50 ML IV STA (21:19)
[2025-03-23] MEDS: OPTIRAY 320 100ml IV ONE (21:43)
[2025-03-23] MEDS: fentaNYL citrate 2,500 MCG/250 ML BAG IV SCH (22:00)
--- NOTE | 2025-03-23 22:16 | XRay Report ---
Exam(s): XR CXR 1 VIEW EXAM: XR Chest, 1 View CLINICAL HISTORY: Reason for exam: ETT. TECHNIQUE: Frontal view of the chest. COMPARISON: Prior chest x-ray from March 23, 2025. FINDINGS: There is a new endotracheal tube in place approximately 53 mm above the marcela. Lungs: Unremarkable. No consolidation. Pleural space: Unremarkable. No pneumothorax. Heart: Unremarkable. No cardiomegaly. Mediastinum: Unremarkable. Normal mediastinal contour. Bones/joints: There is diffuse osteopenia throughout the visualized bones. No acute fracture. IMPRESSION: New endotracheal tube in place approximately 53 mm above the marcela. Electronically signed by: Lou Alexandra MD 03/23/25 22:15 PM
[2025-03-23 22:22] LABS: iSTAT Art Bld Gas Base Excess 0.0 mmol/L (-9-1.8); iSTAT Art Bld Gas pCO2 Correct 41 mmHg (35-46); iSTAT Art Bld Gas pH Corrected 7.388 (7.35-7.45); iSTAT Arterial Blood Gas pO2 C 122
--- NOTE | 2025-03-23 22:26 | CT Scan Report ---
Exam(s): CT NECK SOFT TISSUE With Contrast IV Amt: 93 cc opti 320 EXAM: CT Neck With Intravenous Contrast CLINICAL HISTORY: Reason for exam: Possible traumatic injury. Oropharyngeal bleeding. TECHNIQUE: Axial computed tomography images of the neck with intravenous contrast. CTDI is 19.89 mGy and DLP is 682.73 mGy-cm. Automated exposure control was utilized for the study. A dose lowering technique was utilized adhering to the principles of ALARA. CONTRAST: Patient received 93 cc opti 320 of IV contrast COMPARISON: No relevant prior studies available. FINDINGS: Brain: Right parietal lobe encephalomalacia. Oropharynx: Unremarkable. No significant tonsillar enlargement. No peritonsillar abscess. Hypopharynx: Soft tissue edema in the mucosa/soft tissues marginating the right hypopharynx. Larynx: Epiglottis suboptimally characterized in the setting of endotracheal tube. Injury to the right aspect of the larynx with soft tissue edema and adjacent soft tissue gas. Small contrast blush in the thyroarytenoid muscle (series 3, image 329) may represent bleeding. Trachea: Endotracheal tube in place. Retropharyngeal space: Unremarkable. No retropharyngeal fluid collection. Submandibular/parotid glands: Unremarkable. Thyroid: Unremarkable. No enlarged or calcified nodules. Bones/joints: Degenerative changes in the cervical spine. No acute osseous findings. Soft tissues: Vasculature: Atherosclerotic vascular calcifications. Lymph nodes: Unremarkable. No lymphadenopathy. Calcified mediastinal lymph nodes suggesting chronic granulomatous disease. Sinuses: Mucosal thickening in the maxillary sinuses. Lung apices: Unremarkable as visualized. Tubes, lines and devices: Endotracheal tube in place, terminating above the marcela. IMPRESSION: Injury to the right aspect of the larynx with soft tissue edema and adjacent soft tissue gas. Small contrast blush in the thyroarytenoid muscle (series 3, image 329) may represent bleeding. Electronically signed by: Clark Garcia M.D. 03/23/25 22:24 PM
[2025-03-23 22:33] LABS: Appearance Urine Cloudy (Clear); Bacteria Urine Automated None Seen (None Seen); Epithelial Cell Urine Auto 0-2 /hpf (0-2); Glucose Urine UA Negative (Negative); WBC Urine Automated 0-5 /hpf (0-5)
[2025-03-23] MEDS ORDERED: ONDANSETRON INJ 2 MG/ML 2 ML VIAL IV PRN (22:36)
[2025-03-23] MEDS ORDERED: PROPOFOL BOLUS FROM BAG IV PRN (22:36)
[2025-03-23 22:42] LABS: Creatine Kinase 4325.0 U/L (30-223)
[2025-03-23 22:55] LABS: Amphetamines+Metham, Urine Neg (Neg); MDMA (Ecstacy), Urine Neg (Neg); Marijuana, Urine Neg (Neg)
[2025-03-23] MEDS: PANTOprazole 40 MG/10 ML SYR IV SCH (22:55)
[2025-03-23] MEDS: LACTATED RINGER'S 1,000 ML IV SCH (22:55)
[2025-03-23] MEDS: POTASSIUM CHLORIDE / WTR 10 MEQ/100 ML PLCT IV SCH ×2 (23:10→23:19)
--- NOTE | 2025-03-23 23:12 | Critical Care Consultation ---
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 Acute toxic/metabolic encephalopathy possibly 2/2 ETOH withdrawal. Rule out occult CVA, seizure, Wernicke encephalopathy 2. Psychomotor agitation 2/2 #1 requiring mechanical ventilation 3. ANIL on CKD 4. Rhabdomyolysis 5. Laryngeal injury with hemorrhage 6. NSTEMI, type II 7. History of falls 8. History of sleep walking Neuro - [facility] ICU: Unable to evaluate RASS GOAL 0 to -1 LA WNL, unlikely ongoing seizures High dose thiamine Routine MRI Brain to rule out occult CVA Carotid duplex with history of carotid stenosis Continue propofol and fentanyl infusions Continue phenobarbital protocol Cardiac - Admit EKG pending MAP goal > 65mmHg TTE: N/A Trend troponin to peak, trend CK Respiratory - Continue mechanical ventilation. 6.[address]. Will check for cuff leak in AM. Hold on extubation until cleared by ENT CT Neck showing laryngeal injury with air in the soft tissue and + blush. I did contact ENT (Dr. Bennett) who suggested packing if possible and repeat imaging in AM. If no improvement will need to consider transfer to tertiary care center for specialized care. No infiltrates on imaging HOB 30, aspiration precautions SpO2 goal > 92% GI - Diet: NPO except meds via NGT SUP: Home PPI Bowel regimen: Start tomorrow RENAL/LYTES - Replete electrolytes as indicated Araujo for accurate I/Os Continue balanced crystalloids at 150cc/hr and trend CK ENDO - BG 140-180 per SCCM guidelines ISS if needed while inpatient HEME - Trend H/Hs Coags WNL ID - Add Zosyn for empiric ENT coverage Procalcitonin pending, trend WBC and follow fever curve LINES/TUBES/DRAINS - PIV x2, Araujo (Day #1), ETT (Day #1), NGT (Day #1) DVT PROPHYLAXIS - Hold due to active bleeding I have personally spent 62 minutes of critical care time in the direct management of this patient. This is a life/limb threatening event. This includes time spent evaluating patient, direct bedside care, chart review, placing orders, interpretation of diagnostic studies, discussion with consultants, patient, and family members, as well as other required patient management activities. This time is exclusive of all separately billable procedures, and teaching time and separate from and in addition to any other critical care service time. Thank you for allowing us to participate in the care of this patient. Please refer to my attending physician's documentation for any further recommendations. Supervising Physician Co-Signing Physician Notes I have seen and evaluated the patient with the PA-C. I agree with the documented findings and plan in addition to the following. Admitted overnight. Was a difficult intubation in the ER. CT imaging is concerning for upper airway or esophageal injury. ENT has been consulted. Patient is on Zosyn. I have initiated dexamethasone. Patient was having bradycardia therefore propofol was stopped and Versed infusion was initiated. Given pneumomediastinum and concern for esophageal injury all p.o. medications and tube feeds have been discontinued. Will continue to monitor in the ICU. If there is evidence of worsening pneumomediastinum, new fevers or leukocytosis that could suggest mediastinitis then we will consider repeat imaging. Continue mechanical ventilation. Significant airway edema without cuff leak. was present this morning at bedside, she was updated with plan of care and all questions were addressed. History of Present Illness Reason for Consultation: AMS, intubation Requesting Physician: Cristian Attending Physician: Ludmila Foster, DO History of Present Illness Mr. Keith Lopez is a 64YOM with a history of CVA, carotid stenosis, sleep walking, falls, alcohol use disorder, depression/anxiety, HTN/HLD, regurgitation of food who presented to [facility] via EMS after being found altered in his home. Per report, patient's home was in a state of disarray and the patient appeared to have been laying in stool and urine for some time. Also "covered in blood on his face" without obvious source. VSS on arrival to ED. GCS 10, oriented to person. No neurologic deficits were noted. Patient was persistently agitated, combative, and non-redirectable. He received 4mg Ativan and 10mg Valium without significnat improvement. Restraints applied. Patient subsequently intubated due to continued agitation. Intubation was difficult. Blood noted in oropharynx and surrounding larynx. Intubated via 6.0 ETT after multiple attempts. Transient hypoxia, otherwise remained HDS. Received 2L IVF bolus, 30mg Etomidate, 100mg Rocuronium, and the above benzodiazepines while in ED. Work-up revealed hypokalemia, ANIL, mildly elevated Tbili (similar to prior), CK > 4K, mildly elevated troponin, blood alcohol negative. Imaging revealed possible traumatic injury tracking posterior to the R submandibular gland, sequela of chronic appearing MCA CVA. Started on propofol infusion. He is admitted to ICU for continuation of care. Patient seen in ED B1. Intubated and paralyzed. Hypertensive. Propofol started and fentanyl administered with improvement. Allergies Allergy/AdvReac Type Severity Reaction Status Date / Time Penicillins Allergy Unknown HAPPENED Verified 03/24/25 10:06 A SMALL CHILD Home Medications Medication Instructions Recorded Confirmed Type aspirin 81 mg tablet,delayed 81 mg PO DAILY 08/21/20 02/23/25 History release (Adult Aspirin Regimen) sertraline 100 mg tablet 200 mg (2 x 100 mg) PO DAILY #180 06/22/24 02/23/25 Rx tabs metoprolol succinate 100 mg 100 mg PO DAILY #90 tabs 11/15/24 02/23/25 Rx tablet,extended release 24 hr amlodipine 10 mg tablet 10 mg PO DAILY 02/23/25 02/23/25 History atorvastatin 80 mg tablet 80 mg PO DAILY 02/23/25 02/23/25 History lisinopril 30 mg tablet 30 mg PO DAILY 02/23/25 02/23/25 History cyanocobalamin (vitamin B-12) 1,000 mcg PO DAILY #30 caps 02/25/25 Rx 1,000 mcg capsule pantoprazole 40 mg tablet,delayed 40 mg PO DAILY #30 tabs 02/25/25 Rx release (Protonix) Patient History Medical History (Updated 03/24/25 @ 08:07 by Roger Bennett MD) Tongue injury History of cerebral artery occlusion with cerebral infarction History of carotid artery dissection History of cerebral infarction history of lunar infarct Left carotid artery occlusion (11/01/13) Surgical History No history of previous surgery Family History Father Myocardial infarction Mother Diabetes Bipolar disorder Sister No problems noted. Denies family history of Ovarian cancer Prostate cancer Breast cancer Colorectal cancer Social History Smoking Status: Unknown if ever smoked Tobacco Type: Smokeless Tobacco (Dip or Chew) Second Hand Exposure: No; Do You Dip or Chew Tobacco: Yes; Preferred Language: Icelandic Communication Ability: Unable Visual Impairment: No Limitations Hearing Ability: Normal Beliefs That Will Affect Care: None marital status: Current Living Situation: Other Current Living Situation Comment: [employer] current occupational status: retired Feels Safe at Home: Declines to Answer Childhood Exposure to Second-Hand Smoke: Yes Diet: low salt and regular caffeine: Yes Dental Care, Regularly: No Physical Activity Frequency: Daily Seatbelt Use: always Sunscreen Use: Yes Assistive Devices: None Review of Systems Review of Systems: Unobtainable due to endotracheal tube Physical Exam Constitutional: well developed, well nourished, + disheveled and + mechanically ventilated; no acute distress Eyes: PERRL, conjunctivae normal, anicteric sclerae pupils 3mm and reactive bilaterally ENMT: Mouth: + oropharynx abnormality, + tongue abnormality, + malodorous breath and + poor dentition Throat: + posterior oropharynx abnormality Dried blood around nares and lips. Copious oral secretions +bloody. Tongue appears to have ulcerations and possible trauma without active bleeding. ETT in place. NGT in place. Laryngoscopy performed showing edema of R larynx - blood clots, bloody oral secretions suctioned, no significant active bleeding necessitating packing. Neck: normal visual inspection Respiratory: symmetric chest movement Auscultation: + diminished lung sounds Cardiovascular: RRR, no murmur, no edema Extremities: normal capillary refill; no edema Gastrointestinal (Abdomen): Inspection/Auscultation: abdomen normal to inspection and normal bowel sounds; abdomen not distended Percussion/Palpation: abdomen soft; abdomen nontender, no guarding and abdomen not rigid Musculoskeletal: no cyanosis or clubbing, extremities motor strength 5/5 Skin: + turgor decreased, + ecchymosis and + e rythema; no jaundice Scattered ecchymosis and abrasions. No open lesions/sores. Soles of feet are quite dirty. Neurologic: moves all extremities; no focal motor deficits Cranial Nerves: PERRL and normal gag reflex Genitourinary: Araujo in place draining light yellow urine Results & Data Results & Data Vital Signs (Past 12 Hours) Vital Signs Temp Pulse Pulse Resp BP BP Pulse Ox 03/23/25 22:54 90 18 153/102 H 03/23/25 22:30 18 03/23/25 22:00 92 H 38 H 204/121 H 100 03/23/25 21:30 96 H 16 152/99 H 99 03/23/25 21:15 94 H 18 100 03/23/25 21:10 93 H 18 99 03/23/25 21:00 96 H 18 188/125 H 100 03/23/25 21:00 96 H 18 188/125 H 100 03/23/25 20:57 98 H 16 181/118 H 99 03/23/25 20:42 107 H 16 100 03/23/25 20:34 225/141 H 03/23/25 20:30 249/154 H 03/23/25 20:24 123 H 22 98 03/23/25 20:18 117 H 16 94 03/23/25 20:09 106 H 30 H 95 03/23/25 20:01 97 H 22 159/88 H 93 03/23/25 20:00 36.7 C 97 H 22 159/88 H 93 03/23/25 19:00 84 16 195/131 H 97 03/23/25 18:41 88 22 187/110 H 98 03/23/25 17:56 93 H 03/23/25 17:26 36.3 C L 101 H 25 H 191/118 H 98 03/23/25 17:26 36.3 C L 101 H 25 H 191/118 H 96 O2 Del Method O2 Flow Rate FiO2 03/23/25 22:54 03/23/25 22:30 03/23/25 22:00 Mechanical Vent 03/23/25 21:30 Mechanical Vent 03/23/25 21:15 Mechanical Vent 03/23/25 21:10 50 03/23/25 21:00 Mechanical Vent 03/23/25 21:00 Room Air, Mechanical Vent 03/23/25 20:57 Mechanical Vent 03/23/25 20:42 Mechanical Vent 03/23/25 20:34 03/23/25 20:30 03/23/25 20:24 Room Air 03/23/25 20:18 Room Air 03/23/25 20:09 Room Air 03/23/25 20:01 Room Air 03/23/25 20:00 Room Air 03/23/25 19:00 Room Air 03/23/25 18:41 Room Air 03/23/25 17:56 03/23/25 17:26 Room Air 0 03/23/25 17:26 Room Air Laboratory Results Reviewed Diagnostic Findings Reviewed Medications Administered See JE MNPG Procedure Codes (Charges) Ventilator Management Ventilator Managment: [id number] Ventilation assist and management; Hospital inpt/obs, intl day Coding Level of Care Code 22185 IN/OBS CONSULT LVL 4,60M Diagnoses Hypertension I10 Residual cognitive deficit as late effect of stroke I69.319 Acute kidney injury N17.9 Rhabdomyolysis M62.82 Alcohol use disorder F10.90 NSTEMI (non-ST elevated myocardial infarction) I21.4 Encephalopathy acute G93.40 Falls R29.6 On mechanically assisted ventilation Z99.11 Laryngeal injury S19.81XA Hemorrhage from larynx R04.89 CPT Codes Ventilator Management - Ventilator Managment: [id number] Ventilation assist and management; Hospital inpt/obs, intl day ([id number]) Time Spent (min) 62
[2025-03-23] MEDS: POTASSIUM CHLORIDE 20 MEQ/15 ML UDC PO STA (23:18)
[2025-03-23] MEDS: ACETAMINOPHEN SUSP 325 MG/10.15 ML UDC PO STA (23:19)
[2025-03-23 23:40] LABS: Folate (Folic Acid),Ser orPlas 9.97 ng/ml (>5.38); Vitamin B12 421.0 pg/ml (180-914)
[2025-03-23] MEDS: PIPERACILLIN/TAZOBACTAM 4.5 GM/100 ML BAG IV ONE (23:45)
[2025-03-24 02:05] LABS: Hematocrit (blood only) 34.8 % (42.0-52.0); Hemoglobin 11.8 g/dl (14.0-18.0)
--- NOTE | 2025-03-24 03:02 | Ultrasound Report ---
EXAM: US carotid doppler BI CLINICAL HISTORY: CVA. TECHNIQUE: Ultrasound examination of the carotid arteries was performed in real time and duplex. One or more of the following were performed: spectral analysis, resistive index, waveform analysis, and pulsed Doppler. COMPARISON: No prior imaging available for comparison. FINDINGS: Doppler Profile: Vessel Right (PSV/EDV cm/sec) Left (PSV/EDV cm/sec) Common Carotid Artery (CCA) Proximal: 73.1/27.2 Mid: 47.0/13.9 Distal: 58.3/23.4 Proximal: 67.1/19.1 Mid: 57.5/17.1 Distal: 45.4/16.2 Bulb 46.1/19.8 30.1/9.5 Internal Carotid Artery (ICA) - Proximal 36.7/20.4 55.7/20.0 Internal Carotid Artery - Mid 46.0/22.5 76.4/22.8 Internal Carotid Artery (ICA) - Distal 39.5/21.1 68.1/22.2 External Carotid Artery (ECA) 36.0/7.7 16.0/5.0 Vertebral Artery (VA) 35.3/9.8 39.5/13.9 Right ICA/CCA Ratio Systolic: 0.8 Diastolic: 1.0 Left ICA/CCA Ratio Systolic: 1.7 Diastolic: 1.4 Low velocity is seen in the left external carotid artery; however, the waveform is normal. A few calcified plaques are identified in the left proximal external carotid and internal carotid arteries without significant luminal stenosis. Vertebral Arteries: Normal flow is noted in the vertebral arteries bilaterally. No evidence of vertebral artery stenosis or subclavian steal phenomenon. Additional Findings: No evidence of dissection, aneurysm, or significant intimal thickening. IMPRESSION: 1. Low velocity is seen in the left external carotid artery; however, the waveform is normal. 2. A few calcified plaques are identified in the left proximal external carotid and internal carotid arteries without significant luminal stenosis. 3. Clinical correlation with symptoms and further evaluation as indicated. NASCET Criteria for carotid stenosis: Degree of Stenosis Measurement Criteria (Angiography) Peak Systolic Velocity (PSV) End Diastolic Velocity (EDV) PSV Ratio ICA/CCA Clinical Indications for Surgery Normal No narrowing 125 cm/s 40 cm/s 2.0 Not indicated for surgery Mild Stenosis 50% narrowing of the carotid artery 125 cm/s 40 cm/s 2.0 Generally not indicated for surgery Moderate Stenosis 50% to 69% narrowing of the carotid artery 125 - 230 cm/s 40 - 100 cm/s 2.0 - 4.0 May be considered for surgery based on individual factors Severe Stenosis 70% to 99% narrowing of the carotid artery 230 cm/s 100 cm/s 4.0 Recommended for surgery in symptomatic patients Total Occlusion 100% blockage of the carotid artery No flow detected No flow detected Not applicable Surgery is not typically performed due to complete blockage Electronically signed by Thierno Whitehead 03-24-2025 03:02 AM
[2025-03-24] MEDS: PIPERACILLIN/TAZOBACTAM 4.5 GM/100 ML BAG IV SCH (03:57)
[2025-03-24 04:50] LABS: Alanine Aminotransferase 36.0 U/L (7-52); Albumin Level 3.3 gm/dl (3.4-5.0); Alkaline Phosphatase 42.0 U/L (34-104); Anion Gap 7.0 (3-11); Bilirubin,Total 1.0 mg/dl (0.2-1.0); Blood Urea Nitrogen 24.0 mg/dl (6-23); Calcium 8.4 mg/dl (8.6-10.3); Carbon Dioxide 27.0 mmol/L (21-32); Chloride 105.0 mmol/L (98-107); Creatinine Clr Calc Pharmacy 54.7 ml/min; Glucose 86.0 mg/dl (70-99(Fasting)); Magnesium 1.7 mg/dl (1.7-2.4); Potassium 3.3 mmol/L (3.5-5.1); Sodium 139.0 mmol/L (136-145); Total Protein 5.3 gm/dl (6.0-8.3)
[2025-03-24 04:54] LABS: INR 1.0 (0.9-1.1); Prothrombin Time 10.9 Seconds (9.0-12.0)
[2025-03-24 05:05] LABS: Hematocrit (blood only) 33.8 % (42.0-52.0); Hemoglobin 11.8 g/dl (14.0-18.0); Mean Corpuscular Hemoglobin 35.8 pg (25.0-34.0); Mean Corpuscular Volume 102.4 fL (80.0-100.0); Platelet Count 82 K/uL (130-400); RDW Standard Deviation 50.4 fL (36.4-46.3); Red Blood Count 3.30 M/uL (4.70-6.10); White Blood Count 6.01 K/ul (4.8-10.8)
[2025-03-24 05:14] LABS: Creatine Kinase 3431.0 U/L (30-223)
[2025-03-24] MEDS: MAGNESIUM SULFATE / D5W 1 GM/100 ML BAG IV SCH (05:47)
[2025-03-24] MEDS: ICU ELECTROLYTE REPLACEMENT PROTOCOL SCH (05:48)
[2025-03-24] MEDS: POTASSIUM CHLORIDE 20 MEQ/15 ML UDC NG SCH (06:12)
[2025-03-24] MEDS: ACETAMINOPHEN SUSP 325 MG/10.15 ML UDC NG STA (06:12)
[2025-03-24] MEDS ORDERED: ETOMIDATE 2 MG/ML 20 ML VIAL IV ONE (06:30)
--- NOTE | 2025-03-24 07:18 | XRay Report ---
EXAM: XR KUB/Abdomen 1 view CLINICAL HISTORY: NGT TECHNIQUE: X-ray images of the abdomen were obtained in supine and upright positions. COMPARISON: 03/23/2025 17:12:00 [employer] FINDINGS: NG tube inserted in the stomach; however, its tip is located about 6 cm below the gastroesophageal junction, and needs about 4 cm more insertion. Gas Pattern: Gas pattern within the abdomen is normal. No evidence of bowel obstruction or distention. Soft Tissues: Soft tissues of the abdomen appear normal without evidence of masses or calcifications. Liver, spleen, and kidneys are of normal size and position. IMPRESSION: 1. NG tube inserted in the stomach; however, its tip is located about 6 cm below the gastroesophageal junction, and needs about 4 cm more insertion. (new) 2. No acute abnormalities identified. Electronically signed by Thierno Whitehead 03-24-2025 07:18 AM
[2025-03-24] MEDS: dexAMETHasone 4 MG in SYRINGE 0 ML IV SCH (07:52)
--- NOTE | 2025-03-24 07:59 | ENT Consultation ---
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 cm/s 100 cm/s 4.0 Recommended for surgery in symptomatic patients Total Occlusion 100% blockage of the carotid artery No flow detected No flow detected Not applicable Surgery is not typically performed due to complete blockage Electronically signed by Thierno Whitehead 03-24-2025 03:02 AM PG Care Time/CCT Total # of Minutes Spent Total Time Spent with Patient: Total time spent is greater than 50% in coordination of care (as documented) at patient's floor/unit and/or counseling patient: Coding Level of Care Code 21022 IN/OBS CONSULT LVL 3,45M Diagnoses On mechanically assisted ventilation Z99.11 Falls R29.6 Tongue injury S09.93XA Tongue laceration S01.512A Laryngeal injury S19.81XA
[2025-03-24] MEDS: THIAMINE HCL 500 MG in SODIUM CHLORIDE 0.9% 50 ML IV SCH (08:58)
[2025-03-24] MEDS: MULTI VIT W/MINERALS LIQUID 15 ML UDC NG SCH (08:59)
[2025-03-24] MEDS ORDERED: INFLUENZA VACC TS2025-26(65y+)/PF (IIV3) 0.5mL Syr IM ONE (09:00)
[2025-03-24] MEDS ORDERED: PNEUMOCOCCAL VACCINE (PCV20) 20-VAL CONJ-DIP CRM/PF 0.5 ML SYR IM ONE (09:00)
[2025-03-24 10:08] LABS: Chlamydia pneumoniae PCR Not Detected (NotDetected); Coronavirus 229E PCR Not Detected (NotDetected); Coronavirus CoV-2 (COVID19)PCR Not Detected (NotDetected); Coronavirus HKU1 PCR Not Detected (NotDetected); Coronavirus NL63 PCR Not Detected (NotDetected); Coronavirus OC43PCR Not Detected (NotDetected); Human Metapneumovirus PCR Not Detected (NotDetected); Parainfluenza Virus 1 PCR Not Detected (NotDetected); Parainfluenza Virus 2 PCR Not Detected (NotDetected); Parainfluenza Virus 3 PCR Not Detected (NotDetected); Parainfluenza Virus 4 PCR Not Detected (NotDetected); Respiratory Syncytial VirusPCR Not Detected (NotDetected); Rhinovirus/Enterovirus PCR Not Detected (NotDetected)
[2025-03-24] MEDS: PEPTAMEN INTENSE VHP 1.0 CAL 1,000 ML BAG OG SCH (11:06)
[2025-03-24] MEDS: TUBE FEEDING WATER FLUSH NG SCH (11:08)
--- NOTE | 2025-03-24 12:36 | CT Scan Report ---
CT SCAN OF THE NECK WITHOUT IV CONTRAST CLINICAL HISTORY: Laryngeal injury. COMPARISON STUDY: CT of the neck dated 03/23/2025 TECHNIQUE: Unenhanced CT scan of the soft tissues of the neck was performed from the skull base to th e upper chest. Images are reviewed in the axial, sagittal, and coronal planes. IV contrast was not a dministered for this examination as per the referring clinician. Note that the examination was perfor med in significantly suboptimal fashion without IV contrast. A dose lowering technique was utilized adhering to the principles of ALARA. CT DOSE: 494.42 mGy.cm FINDINGS: Pharynx: The unenhanced pharyngeal soft tissues are edematous, with soft tissue thickening and fluid layering in the pharynx and larynx. The prevertebral/retropharyngeal soft tissues are within normal l imits. There is deep soft tissue gas dissecting within the soft tissues of the neck, right side great er than left as well as pneumomediastinum. There is deep soft tissue edema and hemorrhage identified overlying the thyroid cartilage, right side greater than left. Hemorrhage/blood products are best see n deep to the right thyroid cartilage on axial image #273 and this significant effaces the adjacent a irway. There is also inflammation around the thyroid gland, with deep soft tissue infiltration extend ing into the superior mediastinum. No organized fluid collection is clearly identified on this unenha nced examination. There is edema and fluid with possible blood products around the right submandibula r gland. The cervical esophagus appears thick walled and heterogeneous. The parapharyngeal fat is pre served. Lymphadenopathy: No cervical lymphadenopathy is seen. Thyroid: Normal in size and heterogeneous and attenuation. Salivary glands: There is edema and a small amount of fluid/blood products around the right submandib ular gland. The left submandibular gland and parotid glands are normal as imaged. Brain parenchyma: Right parietal encephalomalacia is partially imaged. The visualized brain parenchym a at the skull base is otherwise grossly unremarkable. Skeletal structures: The skeletal structures are osteopenic. Imaged portions of the calvarium at the skull base are within normal limits. The cervical spine appears intact noting multilevel spondylosis. Sinuses and mastoids: There is moderate mucosal thickening within the maxillary antra, left greater t moore right. Moderate to severe mucosal thickening is noted within the ethmoid sinuses, sphenoid sinuse s, and the left frontal sinus. Mild mucosal thickening seen in the right frontal sinus. The mastoid a ir cells are well pneumatized. Orbits: The bladder which are intact. Orbital contents are normal as visualized. Upper chest: An endotracheal tube is in place and terminates above the marcela. An enteric tube is als o in place. There is pneumomediastinum which tracks superiorly into the superficial and deep soft tis sues of the neck. There is mild emphysematous change. No apical pneumothorax is clearly seen. IMPRESSION: 1. Endotracheal and enteric tubes are in place. 2. There is significant edema and inflammation throughout the pharynx/larynx with hemorrhage/blood pr oducts centered around the right thyroid cartilage. This causes significant airway effacement and thi s is likely secondary to a reported history of pharyngeal/laryngeal trauma. The degree of inflammatio n/edema has significantly increased from 03/23/2025. Clinical correlation will be essential. 3. The cervical esophagus appears thick walled and irregular, and there is increasing pneumomediastin um as well as increasing deep soft tissue gas dissecting throughout the neck. Esophageal injury is no t excluded. 4. There is increasing inflammatory change within the superior mediastinum consistent with a nonspeci fic mediastinitis. 5. There is edema, fluid, and a small amount of blood products around the right submandibular gland. 6. Pansinus disease. ACT 112: Negative or not required by law. Electronically signed by: Tony Ch M.D. 03/24/2025 12:35 PM
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
[2025-03-24] MEDS ORDERED: Nursing to Pharmacy Communication SCH (13:15)
[2025-03-24] MEDS: MIDAZOLAM HCL 125 MG/250 ML BAG IV SCH (14:08)
[2025-03-24] MEDS: MIDAZOLAM HCL 125MG/250ML D5W IV ONE (14:12)
[2025-03-24] MEDS: STAT IV Infusion **Titration per Protocol STA (14:16)
[2025-03-24] MEDS: MIDAZOLAM BOLUS FROM BAG IV PRN (14:29)
--- NOTE | 2025-03-24 14:34 | Magnetic Resonance Report ---
MRI OF THE BRAIN WITHOUT IV CONTRAST CLINICAL HISTORY: Altered mental status. COMPARISON STUDY: MRI of the brain November 01, [address] March 23, 2025. TECHNIQUE: MRI of the brain was performed utilizing various T1 and T2-weighted sequences in the axial , sagittal, and coronal planes. IV contrast was not administered for this examination. FINDINGS: No acute intracranial hemorrhage, midline shift or mass effect is present. There are old in farcts within the left basal ganglia and posterior right MCA territory. There are multifocal T2 hyper intense foci within the bilateral cerebral and cerebellar hemispheres, greater posteriorly. There is mild associated restricted diffusion within the cortex of the left parietal lobe. No definite evidenc e for acute infarct. No intracranial masses are identified on unenhanced exam. There is moderate atro phy with prominence of the extra-axial spaces. IMPRESSION: 1. Multifocal T2 hyperintense foci within the bilateral cerebral and cerebellar hemispheres, greater posteriorly. Although nonspecific, the findings favor posterior reversible encephalopathy syndrome (P RES). Mild associated restricted diffusion within the left parietal lobe. Short-term imaging follow-u p to ensure resolution is recommended. 2. No acute intracranial hemorrhage. No definite acute infarct. 3. Several old infarcts, as described above. ACT 112: Negative or not required by law. Electronically signed by: Delfin Rodriguez M.D. 03/24/2025 2:32 PM
[2025-03-24] MEDS ORDERED: STAT IV Infusion **Titration per Protocol STA (15:02)
[2025-03-24] MEDS: PROPOFOL IV EMULSION 10 MG/ML 100 ML VIAL IV ONE (15:15)
--- NOTE | 2025-03-24 16:08 | Hospitalist Progress Note ---
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 Khari Martines ( )), with no subsequent diagnosis of COPD, not on home O2 or home steroids, who presented to [facility] ER on admission date 03/23/2025 with acute encephalopathy / severe agitation. Patient was subsequently intubated emergently in [facility] ER on admission date 03/23/2025 for airway protection in the setting of severe combativeness in [facility] ER on admission date 03/23/2025. #Encephalopathy, acute - etiology is most probably due to acute ETOH withdrawal. -Continue mechanical ventilation, propofol infusion and fentanyl prn, phenobarbital schedule to acute ETOH withdrawal, thiamine 500mg IV x1 dose (03/23/2025, 9:19pm), followed by thiamine 500mg IV q8 x 6 doses (start date/time, 03/24/2025, 8:58am; 03/24/2025, 4:43pm), soft wrist restraints. #Hemorrhage from airway - patient noted to have blood in his mouth at time of intubation. CT as above with concern for active hemorrhage. -Packing in situ; s/p empiric zosyn 4.5g IV x 1 dose (03/23/2025, 11:45pm), followed by zosyn 4.5g IV q8 (03/24/2025, 3:57am, 12:43pm). -ENT consultation appreciated #Acute traumatic rhabdomyolysis with end-organ (renal) failure - RESOLVING slowly with: cf., CK 4,325 U/L (03/23/2025, 10:08pm), creatinine 1.51, GFR 50.94 (03/23/2025, 10:08pm). cf., CK 3,431 U/L (03/24/2025, 4:12am), creatinine 1.36, GFR 56.26 (03/24/2025, 4:12am). s/p 1 liter of 0.9% NS @ 999 mL/hr (03/23/2025, 6:08pm). s/p 1 liter of 0.9% NS @ 999 mL/hr (03/23/2025, 6:59pm). -Continue LR at 150mL/hr x 3 liters thus far (start date/time, 03/23/2025, 10:55pm; 03/24/2025, 5:27am; 03/24/2025, 12:41pm). -Check repeat CK and creatinine in the 03/25/2025 am. #Hypertension -Hold Lisinopril, Amlodipine and Metoprolol for now, given NPO status and potential for any/all anti-HTN agents to cause hypotension. #Hyperlipidemia -Hold Atorvastatin for now, given potential for this medication to exacerbate acute traumatic rhabdomyolysis. #Anxiety/Depression -Hold Sertraline for now, given NPO status. #Hypokalemia - cf., K 2.9 mmol/L (03/23/2025, 10:08pm). Patient received KCl 40meq PO x 1 dose (03/23/2025, 11:18pm), followed by KCl 10meq IV q1h x 4 doses (03/23/2025, 11:19pm; 03/24/2025, 12:29am, 1:57am, 2:56am) cf., K 3.3 mmol/L (03/24/2025, 4:12am). Patient received KCl 40meq PO x 2 doses (03/24/2025, 6:12am, 9:20am). -Repeat BMP in 03/25/2025 am. #Elevated troponin - No ischemic changes on EKG -Observe without further evaluation given acute type II NSTEMI, due to demand ischemia. Admission and Anticipated Discharge Date Admission Date: March 23, 2025 Subjective Unavailable as patient was intubated in [facility] ER on 03/23/2025, and remains mechanically ventilated in [facility] ICU bed #[id number] on 03/24/2025. Review of Systems Constitutional: Unavailable as patient was intubated in [facility] ER on 03/23/2025, and remains mechanically ventilated in [facility] ICU bed #E102-1 on 03/24/2025. Physical Exam Constitutional: General: Comfortable, non-verbal state due to intubation (03/23/2025 in [facility] ER with patient combative) and mechanically ventilated (03/24/2025 in [facility] ICU bed #[id number] A/C mode of ventilation, TV 430, RR 18, YEYO 5, FIO2 0.4). HEENT: NC/AT. PERRL. No nystagmus, gaze paresis, anisocoria, miosis, mydriasis, chemosis, hyphema, scleral injection, conjunctivitis, or pterygium. No otorrhea. No rhinorrhea. Neck: Supple, no stridor, bruit, or goiter. Jugular venous pressure 5cm above the sternal angle of Maykel, which is typically 5 cm above the right atrium. Lymph: No anterior/posterior cervical lymphadenopathy, supraclavicular/infraclavicular lymphadenopathy, axilla/epitrochlear/inguinal lymphadenopathy. Chest: Symmetric rise and fall with respirations. Non-tender to palpation. Heart: RRR, S1 and S2. No S3 or S4 summation gallop. No tripartite friction rub. No murmur. Lungs: Clear to auscultation and percussion. No audible expiratory wheeze, egophony, pectoriloquy, increase in tactile fremitus, or flatness/dullness to percussion at the bases. Abd: Soft, non-tender, non-distended. Bowel sounds auscultated in all 4 quadrants. No rebound, guarding, Peterson's sign, or organomegaly. Ext: No clubbing, cyanosis. 2+ pedal pulses bilaterally. Skin: No decubitus ulcer, exanthem, or enanthem. Neuro: No tremors, tics, or myoclonus. DTR+. Urology: + collins catheter with urine output 0.20 mL/kg/hr (03/23/2025, 7:36am to 03/24/2025, 7:36am). No urethral discharge. Results & Data Results & Data Vital Signs (Past 12 Hours) Vital Signs Temp Pulse Resp BP Pulse Ox O2 Del Method FiO2 03/24/25 16:01 37.9 C H 73 18 107/72 98 Mechanical Vent 40 03/24/25 16:00 40 03/24/25 15:30 38.0 C H 82 18 127/83 97 Mechanical Vent 40 03/24/25 15:18 37.9 C H 86 21 148/91 H 100 Mechanical Vent 40 03/24/25 15:06 37.6 C H 106 H 23 145/108 H 99 Mechanical Vent 40 03/24/25 14:51 37.3 C 67 21 98 Mechanical Vent 40 03/24/25 14:27 36.9 C 75 20 174/100 H 99 Mechanical Vent 40 03/24/25 14:24 36.9 C 90 22 123/98 100 Mechanical Vent 40 03/24/25 14:03 36.8 C 78 18 146/91 H 99 Mechanical Vent 40 03/24/25 14:01 36.8 C 81 18 96/81 L 99 Mechanical Vent 40 03/24/25 13:31 37.0 C 59 L 18 102/66 99 Mechanical Vent 40 03/24/25 13:16 49 L 18 94/66 L 99 Mechanical Vent 40 03/24/25 13:00 56 L 18 89/61 L 99 Mechanical Vent 40 03/24/25 12:40 40 03/24/25 12:32 56 L 18 102/67 98 Mechanical Vent 40 03/24/25 11:00 37.2 C 62 18 119/81 100 Mechanical Vent 40 03/24/25 10:33 37.2 C 63 18 99/67 L 99 Mechanical Vent 40 03/24/25 10:00 60 19 96 40 03/24/25 10:00 37.3 C 64 18 108/72 99 Mechanical Vent 40 03/24/25 10:00 Mechanical Vent 40 03/24/25 09:30 37.4 C 66 18 105/72 99 Mechanical Vent 40 03/24/25 09:00 37.7 C H 71 18 95/65 L 99 Mechanical Vent 40 03/24/25 08:30 37.9 C H 73 18 101/67 99 Mechanical Vent 40 03/24/25 08:15 38.0 C H 74 18 101/70 99 Mechanical Vent 40 03/24/25 08:15 38.1 C H 74 18 101/70 99 Mechanical Vent 40 03/24/25 08:00 38.1 C H 76 18 107/75 99 Mechanical Vent 40 03/24/25 08:00 76 03/24/25 08:00 40 03/24/25 07:47 38.1 C H 83 18 115/74 99 Mechanical Vent 40 03/24/25 07:35 77 19 98 40 03/24/25 07:00 38.3 C H 79 18 110/72 99 Mechanical Vent 40 03/24/25 06:30 113/73 03/24/25 06:21 38.5 C H 77 18 99 03/24/25 06:15 114/77 03/24/25 06:15 114/77 03/24/25 06:15 114/77 03/24/25 06:15 114/77 03/24/25 06:15 114/77 03/24/25 06:15 114/77 03/24/25 06:15 114/77 03/24/25 06:15 38.5 C H 76 18 99 03/24/25 06:09 38.5 C H 78 18 99 03/24/25 06:00 114/77 03/24/25 05:53 38.2 C H 03/24/25 05:51 38.5 C H 77 18 99 03/24/25 05:45 38.5 C H 82 18 98 03/24/25 05:45 128/93 03/24/25 05:45 128/93 03/24/25 05:45 128/93 03/24/25 05:45 128/93 03/24/25 05:32 37.9 C H 03/24/25 05:31 37.6 C H 03/24/25 05:30 38.4 C H 76 18 99 03/24/25 05:30 116/76 03/24/25 05:30 116/76 03/24/25 05:30 116/76 03/24/25 05:18 38.4 C H 79 18 99 03/24/25 05:15 118/79 03/24/25 05:15 118/79 03/24/25 05:06 38.4 C H 77 18 99 03/24/25 04:33 38.3 C H 76 18 99 03/24/25 04:31 18 50 03/24/25 04:30 129/84 03/24/25 04:30 129/84 03/24/25 04:30 129/84 03/24/25 04:15 124/81 03/24/25 04:15 124/81 03/24/25 04:09 38.2 C H 76 18 100 Laboratory Results Na 140, K 2.9, Cl 98, CO2 28, anion gap 14, BUN 27, creatinine 1.51, GFR 50.94, Ca 9.7, PO4 3.4, Mg 1.8, albumin 4.2 (03/23/2025, 10:08pm). Na 139, K 3.3, Cl 105, CO2 27, anion gap 7, BUN 24, creatinine 1.39, GFR 56.26, Ca 8.4, PO4 3.3, Mg 1.7, albumin 3.3 (03/24/2025, 4:12am). CK 4,325 U/L (03/23/2025, 10:08pm). CK 3,431 U/L (03/24/2025, 4:12am). Troponin-I #1 140.0 pg/mL (03/23/2025, 10:08pm). Troponin-I #2 156.5 pg/mL (03/24/2025, 4:12am). Urine toxicology screen positive only for benzodiazepines (03/23/2025, 9:15pm). WBC 8.68, N82 L5 M13, Hb 11.2, MCV 99.3, MCHC 36.1, platelet 108 (03/23/2025, 5:45pm). WBC 6.01, Hb 11.8, MCV 102.4, MCHC 34.9, platelet 82 (03/24/2025, 4:12am). Lactic acid #1 0.9 mmol/L (03/23/2025, 5:45pm). Lactic acid #2 1.0 mmol/L (03/24/2025, 4:12am). INR 1.0 (03/23/2025, 5:45pm). INR 1.0 (03/24/2025, 4:12am). ABG 7.39 / 41 / 122 / 25 / O2 sat 99% (03/23/2025, 10:08pm). VBG 7.39 / 50 / < 20 / 30 / O2 sat < 60% (03/23/2025, 10:08pm). AST 69, ALT 51, ALK PHOS 58, total bili 1.3 (03/23/2025, 10:08pm). AST 58, ALT 36, ALK PHOS 42, total bili 1.0 (03/24/2025, 4:12am). U/A (03/23/2025, 9:15pm): cloudy dark yellow, nitrite-, LE-, blood 3+ with RBC 11-20, WBC 0-5, epithelial cells 0-2, bacteria none seen MRSA nares screen negative (03/23/2025). Respiratory pathogen PCR panel negative (03/24/2025, 8:10am). Diagnostic Findings Portable CXR (03/23/2025, 5:41pm): 1. Negative for acute disease on portable chest radiograph. 2. Persistent subacute right rib fractures. Pelvis x-ray (03/23/2025, 5:41pm): 1. Negative for acute bony trauma. Cervical spine CT without IV contrast (03/23/2025, 5:42pm): 1. No CT evidence of an acute osseous abnormality. 2. Asymmetric submandibular glands with a rim of soft tissue or high attenuating fluid tracking posterior to the right submandibular gland. The Hounsfield units of 60 may suggest blood products and could represent a traumatic injury, given the asymmetry and clinical history. No adjacent subcutaneous soft tissue swelling. When the patient is able, CT of the neck with contrast could be considered or ultrasound, in an attempt to further characterize this finding. Close clinical follow-up suggested. Alternatively, if prior imaging is available, this would be extremely helpful for comparison. CT facial bones without IV contrast (03/23/2025, 5:42pm): 1. No CT evidence of acute facial abnormality. CT brain without IV contrast (03/23/2025, 5:42pm): 1. No CT evidence of an acute intracranial abnormality. 2. Chronic appearing right MCA stroke, unchanged. CT abd/pelvis without IV contrast (03/23/2025, 5:50pm): 1. No CT evidence of an acute or traumatic abnormality in the abdomen or pelvis . 2. Hepatomegaly and fatty infiltration of the liver. 3. Prostate enlargement. CT chest without IV contrast (03/23/2025, 5:50pm): 1. No CT evidence of an acute or traumatic abnormality in the chest. Portable CXR (03/23/2025, 8:46pm): 1. New endotracheal tube in place approximately 53 mm above the marcela. CT neck soft tissue with IV contrast (03/23/2025, 8:52pm): 1. Injury to the right aspect of the larynx with soft tissue edema and adjacent soft tissue gas. Small contrast blush in the thyroarytenoid muscle (series 3, image 329) may represent bleeding. KUB, 1 view (03/23/2025, 10:29pm): 1. NG tube inserted in the stomach; however, its tip is located about 6 cm below the gastroesophageal junction, and needs about 4 cm more insertion. (new) 2. No acute abnormalities identified. Carotid doppler (03/23/2025, 11:59pm): 1. Low velocity is seen in the left external carotid artery; however, the waveform is normal. 2. A few calcified plaques are identified in the left proximal external carotid and internal carotid arteries without significant luminal stenosis. Brain MRI without IV contrast (03/24/2025, 7:42am): 1. Multifocal T2 hyperintense foci within the bilateral cerebral and cerebellar hemispheres, greater posteriorly. Although nonspecific, the findings favor posterior reversible encephalopathy syndrome (PRES). Mild associated restricted diffusion within the left parietal lobe. Short-term imaging follow-up to ensure resolution is recommended. 2. No acute intracranial hemorrhage. No definite acute infarct. 3. Several old infarcts within the left basal ganglia and posterior right MCA territory. CT neck soft tissue without IV contrast (03/24/2025, 8:00am): 1. Endotracheal and enteric tubes are in place. 2. There is significant edema and inflammation throughout the pharynx/larynx with hemorrhage/blood products centered around the right thyroid cartilage. This causes significant airway effacement and this is likely secondary to a reported history of pharyngeal/laryngeal trauma. The degree of inflammation/edema has significantly increased from 03/23/2025. Clinical correlation will be essential. 3. The cervical esophagus appears thick walled and irregular, and there is increasing pneumomediastinum as well as increasing deep soft tissue gas dissecting throughout the neck. Esophageal injury is not excluded. 4. There is increasing inflammatory change within the superior mediastinum consistent with a nonspecific mediastinitis. 5. There is edema, fluid, and a small amount of blood products around the right submandibular gland. 6. Pansinus disease. PG Care Time/CCT Total # of Minutes Spent Total Time Spent with Patient: Total time spent is greater than 50% in coordination of care (as documented) at patient's floor/unit and/or counseling patient: Coding Level of Care Code 04072 SUB INP/OBS CARE 3/50MIN Diagnoses Encephalopathy acute G93.40 Hemorrhage from larynx R04.89 Primary hypertension I10 Hypertension type: primary hypertension Hypercholesterolemia E78.00 Traumatic rhabdomyolysis, subsequent encounter T79.6XXD Rhabdomyolysis type: traumatic Encounter type: subsequent encounter (3) Hypertension Hypertension type: primary hypertension Qualified Code(s): I10 - Essential (primary) hypertension (5) Rhabdomyolysis Rhabdomyolysis type: traumatic Encounter type: subsequent encounter Qualified Code(s): T79.6XXD - Traumatic ischemia of muscle, subsequent encounter
[2025-03-24 18:41] LABS: Magnesium 2.6 mg/dl (1.7-2.4); Potassium 4.2 mmol/L (3.5-5.1)
[2025-03-24] MEDS: PROPOFOL BOLUS FROM BAG IV PRN (20:37)
[2025-03-25 05:51] LABS: Hematocrit (blood only) 32.1 % (42.0-52.0); Hemoglobin 10.6 g/dl (14.0-18.0); Immature Granulocytes # (auto) 0.02 K/uL (0.01-0.20); Immature Granulocytes % (auto) 0.4 %; Mean Corpuscular Hemoglobin 34.4 pg (25.0-34.0); Mean Corpuscular Volume 104.2 fL (80.0-100.0); Platelet Count 80 K/uL (130-400); RDW Standard Deviation 52.3 fL (36.4-46.3); Red Blood Count 3.08 M/uL (4.70-6.10); White Blood Count 4.94 K/ul (4.8-10.8)
[2025-03-25 06:04] LABS: Anion Gap 6.0 (3-11); Blood Urea Nitrogen 17.0 mg/dl (6-23); Calcium 8.4 mg/dl (8.6-10.3); Carbon Dioxide 26.0 mmol/L (21-32); Chloride 107.0 mmol/L (98-107); Creatinine Clr Calc Pharmacy 62.3 ml/min; Glucose 71.0 mg/dl (70-99(Fasting)); Magnesium 2.2 mg/dl (1.7-2.4); Potassium 3.8 mmol/L (3.5-5.1); Sodium 139.0 mmol/L (136-145)
[2025-03-25] MEDS: D5W AND LACTATED RINGERS 1,000 ML IV SCH (06:29)
[2025-03-25] MEDS: POTASSIUM CHLORIDE / WTR 10 MEQ/100 ML PLCT IV SCH (06:32)
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
[2025-03-25] MEDS: ACETAMINOPHEN 1,000 MG/100 ML VIAL IV STA (06:41)
[2025-03-25 07:14] LABS: Alanine Aminotransferase 31.0 U/L (7-52); Albumin Level 2.9 gm/dl (3.4-5.0); Alkaline Phosphatase 42.0 U/L (34-104); Bilirubin,Total 1.2 mg/dl (0.2-1.0); Total Protein 5.2 gm/dl (6.0-8.3)
[2025-03-25 08:30] LABS: iSTAT Art Bld Gas Base Excess -3.0 mmol/L (-9-1.8); iSTAT Art Bld Gas pCO2 Correct 37 mmHg (35-46); iSTAT Art Bld Gas pH Corrected 7.378 (7.35-7.45); iSTAT Arterial Blood Gas pO2 C 93
--- NOTE | 2025-03-25 11:18 | XRay Report ---
SINGLE VIEW CHEST CLINICAL HISTORY: Follow-up pneumomediastinum FINDINGS: An AP, portable, upright chest radiograph is compared to chest x-ray and chest CT dated . An endotracheal tube is unchanged in position. An enteric tube has been placed. The tip proj ects below the diaphragm and is not visualized. Pneumomediastinum persists. There is deep soft tissue gas in the lower neck. The heart is top normal for projection. There is pulmonary vascular congestio n. There is elevation of the right hemidiaphragm with bibasilar scarring/atelectasis. No large pleura l effusion or pneumothorax is seen. The skeletal structures are osteopenic. There are chronic/healed right-sided rib fractures. IMPRESSION: 1. Lines and tubes as above. 2. There is mild pulmonary vascular congestion. 3. Pneumomediastinum persists, and there is deep soft tissue gas in the lower neck. 4. No large pleural effusion or pneumothorax is identified. ACT 112: Negative or not required by law. Electronically signed by: Tony Ch M.D. 03/25/2025 11:16 AM
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
--- NOTE | 2025-03-25 23:40 | Ultrasound Report ---
Exam(s): US VENOUS BILATERAL UPPER EXTREMITIES EXAM: US Duplex Bilateral internal jugular veins. CLINICAL HISTORY: Reason for exam: Please image bilateral jugular veins. OTHER: Other Notes: Eval B/L jugular veins per doctor. B/L IJVs patent, fully compressible. NO clot seen. TECHNIQUE: Real-time duplex ultrasound scan of the bilateral upper extremity veins integrating B-mode two-dimensional vascular structure, Doppler spectral analysis, color flow Doppler imaging and compression. COMPARISON: No relevant prior studies available. FINDINGS: Right deep vein: Unremarkable. No DVT in the right internal jugular vein. The vein demonstrate normal color flow, are normally compressible, with normal phasic flow and/or augmentation response. Left deep veins: Unremarkable. No DVT in the left internal jugular vein. The vein demonstrate normal color flow, are normally compressible, with normal phasic flow and/or augmentation response. Soft tissues: No acute findings. IMPRESSION: Widely patent bilateral internal jugular veins. Electronically signed by: Lou Alexandra MD 03/25/25 23:39 PM
[2025-03-26] MEDS: HALOPERIDOL LACTATE 5 MG/ML 1 ML VIAL IV STA (01:48)
[2025-03-26] MEDS: HALOPERIDOL LACTATE 5 MG/ML 1 ML VIAL ONE (01:51)
[2025-03-26 04:55] LABS: Alanine Aminotransferase 31.0 U/L (7-52); Albumin Level 2.6 gm/dl (3.4-5.0); Alkaline Phosphatase 38.0 U/L (34-104); Anion Gap 5.0 (3-11); Bilirubin,Total 0.8 mg/dl (0.2-1.0); Blood Urea Nitrogen 14.0 mg/dl (6-23); Calcium 8.0 mg/dl (8.6-10.3); Carbon Dioxide 25.0 mmol/L (21-32); Chloride 108.0 mmol/L (98-107); Creatine Kinase 889.0 U/L (30-223); Creatinine Clr Calc Pharmacy 73.5 ml/min; Glucose 222.0 mg/dl (70-99(Fasting)); Magnesium 1.8 mg/dl (1.7-2.4); Potassium 3.8 mmol/L (3.5-5.1); Sodium 138.0 mmol/L (136-145); Total Protein 4.6 gm/dl (6.0-8.3)
[2025-03-26 04:58] LABS: iSTAT Art Bld Gas Base Excess -3.0 mmol/L (-9-1.8); iSTAT Art Bld Gas pCO2 Correct 31 mmHg (35-46); iSTAT Art Bld Gas pH Corrected 7.442 (7.35-7.45); iSTAT Arterial Blood Gas pO2 C 74
[2025-03-26] MEDS ORDERED: SODIUM PHOSPHATE 3 MMOL/1 ML INFUSION IV STA (05:02)
[2025-03-26 05:25] LABS: Hematocrit (blood only) 27.6 % (42.0-52.0); Hemoglobin 9.0 g/dl (14.0-18.0); Immature Granulocytes # (auto) 0.04 K/uL (0.01-0.20); Immature Granulocytes % (auto) 0.9 %; Mean Corpuscular Hemoglobin 34.4 pg (25.0-34.0); Mean Corpuscular Volume 105.3 fL (80.0-100.0); Platelet Count 83 K/uL (130-400); RDW Standard Deviation 51.9 fL (36.4-46.3); Red Blood Count 2.62 M/uL (4.70-6.10); White Blood Count 4.32 K/ul (4.8-10.8)
[2025-03-26] MEDS: POTASSIUM CHLORIDE / WTR 10 MEQ/100 ML PLCT IV SCH (05:57)
[2025-03-26] MEDS: MAGNESIUM SULFATE / D5W 1 GM/100 ML BAG IV SCH (05:57)
[2025-03-26] MEDS: SODIUM PHOSPHATE 15 MMOL in SODIUM CHLORIDE 0.9% 250 ML IV ONE (05:58)
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
[2025-03-26] MEDS ORDERED: Nursing to Pharmacy Communication SCH (07:30)
--- NOTE | 2025-03-26 07:59 | XRay Report ---
EXAM: XR chest 1V portable CLINICAL HISTORY: f/u pneumomediustinum TECHNIQUE: An X-ray image of the chest was obtained in the AP projection. COMPARISON: 03/23/2025 FINDINGS: The endotracheal tube (ETT) terminal end is 39 mm above the marcela. The nasogastric tube (NGT) terminal end is seen below the left hemidiaphragm. Pulmonary Parenchyma: There is ground-glass opacity in the right lower lung zone. There is no evidence of pleural effusion or pleural thickening. Heart and Mediastinum: The heart size and shape are normal. Bony Thorax: There are multiple old, healed right-sided rib fractures. Soft Tissues: The soft tissues overlying the chest wall are unremarkable. IMPRESSION: 1. There is no radiographic evidence of pneumomediastinum in the current X-ray. 2. Otherwise, there are no changes compared to the prior study dated 03/23/2025. 3. Ground-glass opacity at the right lower lung zone is stable. 4. The ETT terminal end is 39 mm above the marcela. Stable. 5. The NGT terminal end is seen below the left hemidiaphragm. New. 6. There are multiple old, healed right-sided rib fractures. Stable. Electronically signed by Thierno Whitehead 03-26-2025 07:58 AM
--- NOTE | 2025-03-26 11:34 | Hospitalist Progress Note ---
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 Khari Martines ( )), with no subsequent diagnosis of COPD, not on home O2 or home steroids, who presented to [facility] ER on admission date 03/23/2025 with acute encephalopathy / severe agitation. Patient was subsequently intubated emergently in [facility] ER on admission date 03/23/2025 for airway protection in the setting of severe combativeness in [facility] ER on admission date 03/23/2025. #Encephalopathy, acute - etiology is most probably due to acute ETOH withdrawal. -Continue mechanical ventilation, propofol infusion and fentanyl infusion, thiamine 500mg IV x1 dose (03/23/2025, 9:19pm), followed by thiamine 500mg IV q8 x 4 doses doses (start date/time, 03/24/2025, 8:58am; 03/24/2025, 4:43pm; 03/25/2025, 12:46am, 8:56am), soft wrist restraints. #Hemorrhage from airway - patient noted to have blood in his mouth at time of intubation. CT as above with concern for active hemorrhage. -Packing in situ; s/p empiric zosyn 4.5g IV x 1 dose (03/23/2025, 11:45pm), followed by zosyn 4.5g IV q8 (03/24/2025, 3:57am, 12:43pm). -ENT consultation appreciated #Acute traumatic rhabdomyolysis with acute end-organ (renal) failure - both issues RESOLVING very well: cf., CK 4,325 U/L (03/23/2025, 10:08pm), creatinine 1.51, GFR 50.94 (03/23/2025, 10:08pm). cf., CK 3,431 U/L (03/24/2025, 4:12am), creatinine 1.36, GFR 56.26 (03/24/2025, 4:12am). cf., CK 1,320 U/L (03/25/2025, 5:01am), creatinine 1.22, GFR 65.79 (03/25/2025, 5:01am). cf., CK 889 U/L (03/26/2025, 4:11am), creatinine 1.13, GFR 72.13 (03/26/2025, 4:11am). s/p 1 liter of 0.9% NS @ 999 mL/hr (03/23/2025, 6:08pm). s/p 1 liter of 0.9% NS @ 999 mL/hr (03/23/2025, 6:59pm). s/p 5 liters of lactated Ringers @ 150 mL/hr (03/23/2025, 10:55pm; 03/24/2025, 5:27am; 03/24/2025, 12:41pm, 7:44pm; 03/25/2025, 1:48am). s/p 3 liters of D5-lactated Ringers @ 125 mL/hr (03/25/2025, 6:29am, 2:25pm; 03/26/2025, 12:12am). s/p 2 liters of D5-lactated Ringers @ 100 mL/hr (03/26/2025, 6:58am, 8:36am). -Check repeat CK and creatinine in the 03/27/2025 am. #Hypertension -Hold Lisinopril, Amlodipine and Metoprolol for now, given NPO status and potential for any/all anti-HTN agents to cause hypotension. #Hyperlipidemia -Hold Atorvastatin for now, given potential for this medication to exacerbate acute traumatic rhabdomyolysis. #Anxiety/Depression -Hold Sertraline for now, given NPO status. #Hypokalemia cf., K 2.9 mmol/L (03/23/2025, 10:08pm). Patient received KCl 40meq PO x 1 dose (03/23/2025, 11:18pm), followed by KCl 10meq IV q1h x 4 doses (03/23/2025, 11:19pm; 03/24/2025, 12:29am, 1:57am, 2:56am) cf., K 3.3 mmol/L (03/24/2025, 4:12am). Patient received KCl 40meq PO x 2 doses (03/24/2025, 6:12am, 9:20am). cf., K 4.2 mmol/L (03/24/2025, 5:58pm). cf., K 3.8 mmol/L (03/25/2025, 5:01am). Patient received KCl 10meq IV q1h x 4 doses (03/25/2025, 6:32am, 7:25am, 8:24am, 9:23am). cf., K 3.8 mmol/L (03/26/2025, 4:11am). Patient received KCl 10meq IC q1h x 4 doses (03/26/2025, 5:57am, 6:39am, 7:53am, 8:57am). Check K level in the 03/27/2025 am. #Post-hospital admission development of acute hypophosphatemia cf., PO4 3.4 (03/23/2025, 10:08pm). cf., PO4 3.3 (03/24/2025, 4:12am). cf., PO4 2.6 (03/25/2025, 5:01am). cf., PO4 2.3 (03/26/2025, 4:11am). Etiology of acute hypophosphatemia is most probably due to (a) NPO state with no intake of phosphorus-containing food, and (b) acute traumatic rhabdomyolysis. Patient received sodium phosphate 15mmol IV x 1 dose (03/26/2025, 5:58am). Check PO4 level in the 03/27/2025 am. #Elevated troponin - No ischemic changes on EKG -Observe without further evaluation given acute type II NSTEMI, due to demand ischemia, due to acute traumatic rhabdomyolysis with acute end-organ (kidney) failure. Admission and Anticipated Discharge Date Admission Date: March 23, 2025 Subjective Unavailable as patient was intubated in [facility] ER on 03/23/2025, and remains mechanically ventilated in [facility] ICU bed #E102-1 on 03/24/2025, 03/25/2025, and 03/26/2025. Review of Systems Constitutional: Unavailable as patient was intubated in [facility] ER on 03/23/2025, and remains mechanically ventilated in [facility] ICU bed #E102-1 on 03/24/2025 , 03/25/2025, and 03/26/2025. Physical Exam Constitutional: General: Comfortable, non-verbal state due to intubation (03/23/2025 in [facility] ER with patient combative) and mechanically ventilated (03/24/2025 in [facility] ICU bed #E102-1 on A/C mode of ventilation, TV 430, RR 18, PEEP 5, FIO2 0.5). HEENT: NC/AT. PERRL. No nystagmus, gaze paresis, anisocoria, miosis, mydriasis, chemosis, hyphema, scleral injection, conjunctivitis, or pterygium. No otorrhea. NGT in situ. Neck: Supple, no stridor, bruit, or goiter. Jugular venous pressure 5cm above the sternal angle of Maykel, which is typically 5 cm above the right atrium. Lymph: No anterior/posterior cervical lymphadenopathy, supraclavicular/infraclavicular lymphadenopathy, axilla/epitrochlear/inguinal lymphadenopathy. Chest: Symmetric rise and fall with respirations. Non-tender to palpation. Heart: Slow heart rate ranging from 48 bpm (03/25/2025, 8:00am) to 39 bpm (03/25/2025, 11:03am), S1 and S2. No S3 or S4 summation gallop. No tripartite friction rub. No murmur. Lungs: Clear to auscultation and percussion. No audible expiratory wheeze, egophony, pectoriloquy, increase in tactile fremitus, or flatness/dullness to percussion at the bases. Abd: Soft, non-tender, non-distended. Bowel sounds auscultated in all 4 quadrants. No rebound, guarding, Peterson's sign, or organomegaly. Ext: No clubbing, cyanosis. 2+ pedal pulses bilaterally. 2 point soft cotton wrist restraints. Skin: No decubitus ulcer, exanthem, or enanthem. Neuro: No tremors, tics, or myoclonus. DTR+. Urology: + collins catheter with urine output 0.39 mL/kg/hr (03/24/2025, 7:33am to 03/25/2025, 7:33am). No urethral discharge. Urology: + collins catheter with urine output 0.43 mL/kg/hr (03/25/2025, 8:06am to 03/26/2025, 8:06am). No urethral discharge. Results & Data Results & Data Vital Signs (Past 12 Hours) Vital Signs Temp Pulse Resp BP Pulse Ox O2 Del Method FiO2 03/26/25 11:03 39 L 18 96 50 03/26/25 09:30 108/73 03/26/25 09:30 36.9 C 39 L 18 93 03/26/25 09:06 37.1 C 44 L 18 93 03/26/25 09:00 105/69 03/26/25 08:48 37.2 C 49 L 18 92 03/26/25 08:36 37.3 C 51 L 18 92 03/26/25 08:30 101/71 03/26/25 08:09 37.2 C 59 L 18 93 03/26/25 08:06 37.2 C 60 18 93 03/26/25 08:00 130/67 03/26/25 08:00 Mechanical Vent 03/26/25 08:00 45 03/26/25 08:00 45 03/26/25 08:00 48 L 03/26/25 07:54 37.1 C 68 18 95 03/26/25 07:33 36.8 C 70 19 100 03/26/25 07:30 144/93 H 03/26/25 07:24 18 94 45 03/26/25 07:06 36.6 C 50 L 18 95 03/26/25 07:03 36.6 C 52 L 18 97 03/26/25 07:00 116/77 03/26/25 06:42 36.8 C 50 L 18 96 03/26/25 06:30 127/77 03/26/25 06:30 36.8 C 48 L 18 96 03/26/25 06:00 140/86 03/26/25 06:00 36.9 C 47 L 18 97 03/26/25 05:30 132/84 03/26/25 05:30 132/84 03/26/25 05:30 132/84 03/26/25 05:30 36.9 C 47 L 15 96 03/26/25 05:00 36.9 C 44 L 17 96 03/26/25 05:00 135/88 03/26/25 05:00 135/88 03/26/25 04:39 37.0 C 48 L 16 97 03/26/25 04:15 36.9 C 43 L 18 96 03/26/25 04:00 132/78 03/26/25 04:00 132/78 03/26/25 03:57 36.9 C 45 L 18 95 03/26/25 03:50 44 L 18 97 45 03/26/25 03:44 45 03/26/25 03:30 120/81 03/26/25 03:30 36.8 C 45 L 18 94 03/26/25 03:12 36.8 C 51 L 18 93 03/26/25 03:00 109/74 03/26/25 03:00 109/74 03/26/25 02:33 36.6 C 58 L 21 96 03/26/25 02:30 36.6 C 63 18 95 03/26/25 02:30 127/82 03/26/25 02:06 36.6 C 63 18 92 03/26/25 02:00 145/91 H 03/26/25 02:00 145/91 H 03/26/25 01:51 36.4 C L 95 H 18 98 03/26/25 01:39 36.9 C 77 18 100 03/26/25 01:00 156/89 H 03/26/25 01:00 156/89 H 03/26/25 01:00 156/89 H 03/26/25 01:00 156/89 H 03/26/25 01:00 156/89 H 03/26/25 01:00 37.2 C 47 L 18 96 03/26/25 00:39 37.1 C 47 L 18 97 03/26/25 00:13 18 166/102 H 03/26/25 00:03 37.4 C 71 20 97 03/26/25 00:00 48 L 03/26/25 00:00 166/102 H 03/26/25 00:00 166/102 H 03/26/25 00:00 166/102 H 03/26/25 00:00 45 03/25/25 23:42 37.4 C 47 L 18 97 03/25/25 23:40 45 L 18 98 45 03/25/25 23:36 37.4 C 45 L 18 97 Laboratory Results Na 140, K 2.9, Cl 98, CO2 28, anion gap 14, BUN 27, creatinine 1.51, GFR 50.94, Ca 9.7, PO4 3.4, Mg 1.8, albumin 4.2 (03/23/2025, 10:08pm). Na 139, K 3.3, Cl 105, CO2 27, anion gap 7, BUN 24, creatinine 1.39, GFR 56.26, Ca 8.4, PO4 3.3, Mg 1.7, albumin 3.3 (03/24/2025, 4:12am). Mg 2.6 (03/24/2025, 5:58am) Na 139, K 3.8, Cl 107, CO2 26, anion gap 6, BUN 17, creatinine 1.22, GFR 65.79, Ca 8.4, PO4 2.6, Mg 2.2, albumin 2.9 (03/25/2025, 5:01am). Na 138, K 3.8, Cl 108, CO2 25, anion gap 5, BUN 14, creatinine 1.13, GFR 72.13, Ca 8.0, PO4 2.3, Mg 1.8, albumin 2.6 (03/26/2025, 4:11am). CK 4,183 U/L (03/23/2025, 5:45pm). CK 4,325 U/L (03/23/2025, 10:08pm). CK 3,431 U/L (03/24/2025, 4:12am). CK 1,320 U/L (03/25/2025, 7:56am). CK 889 U/L (03/26/2025, 4:11am). Troponin-I #1 101.5 pg/mL (03/23/2025, 5:45pm). Troponin-I #2 119.5 pg/mL (03/23/2025, 8:06pm). Troponin-I #1 140.0 pg/mL (03/23/2025, 10:08pm). Troponin-I #2 156.5 pg/mL (03/24/2025, 4:12am). Urine toxicology screen positive only for benzodiazepines (03/23/2025, 9:15pm). WBC 8.68, N82 L 5 M13, Hb 11.2, MCV 99.3, MCHC 36.1, platelet 108 (03/23/2025, 5:45pm). WBC 6.01, Hb 11.8, MCV 102.4, MCHC 34.9, platelet 82 (03/24/2025, 4:12am). WBC 4.94, N65 L19 M13 E2, Hb 10.6, MCV 104.2, MCHC 33.0, platelet 80 (03/25/2025, 5:01am). WBC 4.32, N60 L19 M17 E2, Hb 9.0, MCV 105.3, MCHC 32.6, platelet 83 (03/26/2025, 4:19am). Lactic acid #1 0.9 mmol/L (03/23/2025, 5:45pm). Lactic acid #2 1.0 mmol/L (03/24/2025, 4:12am). Lactic acid #3 1.3 mmol/L (03/26/2025, 4:11am). INR 1.0 (03/23/2025, 5:45pm). INR 1.0 (03/24/2025, 4:12am). ABG 7.39 / 41 / 122 / 25 / O2 sat 99% (03/23/2025, 10:08pm). ABG 7.38 / 37 / 92 / 22 / O2 sat 97% (03/25/2025, 8:15am). ABG 7.44 / 31 / 74 / 21 / O2 sat 98% (03/26/2025, 4:37am). VBG 7.39 / 50 / < 20 / 30 / O2 sat < 60% (03/23/2025, 10:08pm). AST 69, ALT 51, ALK PHOS 58, total bili 1.3 (03/23/2025, 10:08pm). AST 58, ALT 36, ALK PHOS 42, total bili 1.0 (03/24/2025, 4:12am). AST 52, ALT 31, ALK PHOS 42, total bili 1.2 (03/25/2025, 5:01am). AST 53, ALT 31, ALK PHOS 38, total bili 0.8 (03/26/2025, 4:11am). U/A (03/23/2025, 9:15pm): cloudy dark yellow, nitrite-, LE-, blood 3+ with RBC 11-20, WBC 0-5, epithelial cells 0-2, bacteria none seen MRSA nares screen negative (03/23/2025). Respiratory pathogen PCR panel negative (03/24/2025, 8:10am). Blood culture #1 (03/24/2025, 10:23am): Blood culture #2 (03/24/2025, 10:27am): Sputum culture #1 (03/24/2025, 11:00am): No growth. Sputum culture #2 (03/26/2025, 12:29am): Diagnostic Findings Portable CXR (03/23/2025, 5:41pm): 1. Negative for acute disease on portable chest radiograph. 2. Persistent subacute right rib fractures. Pelvis x-ray (03/23/2025, 5:41pm): 1. Negative for acute bony trauma. Cervical spine CT without IV contrast (03/23/2025, 5:42pm): 1. No CT evidence of an acute osseous abnormality. 2. Asymmetric submandibular glands with a rim of soft tissue or high attenuating fluid tracking posterior to the right submandibular gland. The Hounsfield units of 60 may suggest blood products and could represent a traumatic injury, given the asymmetry and clinical history. No adjacent subc utaneous soft tissue swelling. When the patient is able, CT of the neck with contrast could be considered or ultrasound, in an attempt to further characterize this finding. Close clinical follow-up suggested. Alternatively, if prior imaging is available, this would be extremely helpful for comparison. CT facial bones without IV contrast (03/23/2025, 5:42pm): 1. No CT evidence of acute facial abnormality. CT brain without IV contrast (03/23/2025, 5:42pm): 1. No CT evidence of an acute intracranial abnormality. 2. Chronic appearing right MCA stroke, unchanged. CT abd/pelvis without IV contrast (03/23/2025, 5:50pm): 1. No CT evidence of an acute or traumatic abnormality in the abdomen or pelvis. 2. Hepatomegaly and fatty infiltration of the liver. 3. Prostate enlargement. CT chest without IV contrast (03/23/2025, 5:50pm): 1. No CT evidence of an acute or traumatic abnormality in the chest. Portable CXR (03/23/2025, 8:46pm): 1. New endotracheal tube in place approximately 53 mm above the marcela. CT neck soft tissue with IV contrast (03/23/2025, 8:52pm): 1. Injury to the right aspect of the larynx with soft tissue edema and adjacent soft tissue gas. Small contrast blush in the thyroarytenoid muscle (series 3, image 329) may represent bleeding. KUB, 1 view (03/23/2025, 10:29pm): 1. NG tube inserted in the stomach; however, its tip is located about 6 cm below the gastroesophageal junction, and needs about 4 cm more insertion. (new) 2. No acute abnormalities identified. Carotid doppler (03/23/2025, 11:59pm): 1. Low velocity is seen in the left external carotid artery; however, the waveform is normal. 2. A few calcified plaques are identified in the left proximal external carotid and internal carotid arteries without significant luminal stenosis. Brain MRI without IV contrast (03/24/2025, 7:42am): 1. Multifocal T2 hyperintense foci within the bilateral cerebral and cerebellar hemispheres, greater posteriorly. Although nonspecific, the findings favor posterior reversible encephalopathy syndrome (PRES). Mild associated restricted diffusion within the left parietal lobe. Short-term imaging follow-up to ensure resolution is recommended. 2. No acute intracranial hemorrhage. No definite acute infarct. 3. Several old infarcts within the left basal ganglia and posterior right MCA territory. CT neck soft tissue without IV contrast (03/24/2025, 8:00am): 1. Endotracheal and enteric tubes are in place. 2. There is significant edema and inflammation throughout the pharynx/larynx with hemorrhage/blood products centered around the right thyroid cartilage. This causes significant airway effacement and this is likely secondary to a reported history of pharyngeal/laryngeal trauma. The degree of inflammation/edema has significantly increased from 03/23/2025. Clinical correlation will be essential. 3. The cervical esophagus appears thick walled and irregular, and there is increasing pneumomediastinum as well as increasing deep soft tissue gas dissecting throughout the neck. Esophageal injury is not excluded. 4. There is increasing inflammatory change within the superior mediastinum consistent with a nonspecific mediastinitis. 5. There is edema, fluid, and a small amount of blood products around the right submandibular gland. 6. Weiss-sinus disease. Portable CXR (03/25/2025, 9:37am): 1. Lines and tubes as above. 2. There is mild pulmonary vascular congestion. 3. Pneumomediastinum persists, and there is deep soft tissue gas in the lower neck. 4. No large pleural effusion or pneumothorax is identified. Bilateral UE venous doppler (03/25/2025, 7:19pm): 1. Widely patent bilateral internal jugular veins. Portable CXR (03/26/2025, 7:00am): 1. There is no radiographic evidence of pneumomediastinum in the current X-ray. 2. Otherwise, there are no changes compared to the prior study dated 03/23/2025. 3. Ground-glass opacity at the right lower lung zone is stable. 4. The ETT terminal end is 39 mm above the marcela. Stable. 5. The NGT terminal end is seen below the left hemidiaphragm. New. 6. There are multiple old, healed right-sided rib fractures. Stable. PG Care Time/CCT Total # of Minutes Spent Total Time Spent with Patient: Total time spent is greater than 50% in coordination of care (as documented) at patient's floor/unit and/or counseling patient: Coding Level of Care Code 11163 SUB INP/OBS CARE 2/35MIN Diagnoses Encephalopathy acute G93.40 Hemorrhage from larynx R04.89 Primary hypertension I10 Hypertension type: primary hypertension Hypercholesterolemia E78.00 Traumatic rhabdomyolysis, subsequent encounter T79.6XXD Encounter type: subsequent encounter Rhabdomyolysis type: traumatic (3) Hypertension Hypertension type: primary hypertension Qualified Code(s): I10 - Essential (primary) hypertension (5) Rhabdomyolysis Encounter type: subsequent encounter Rhabdomyolysis type: traumatic Qualified Code(s): T79.6XXD - Traumatic ischemia of muscle, subsequent encounter
--- NOTE | 2025-03-26 22:12 | Electrocardiogram Report ---
Test Reason : Blood Pressure : */* mmHG Vent. Rate : 41 BPM Atrial Rate : 41 BPM P-R Int : 124 ms QRS Dur : 88 ms QT Int : 486 ms P-R-T Axes : 12 25 25 degrees QTcB Int : 400 ms Marked sinus bradycardia Abnormal ECG When compared with ECG of 24-Mar-2025 00:35, (unconfirmed) Vent. rate has decreased by 39 bpm QT has shortened Confirmed by Darrin Guy ([id number]) on 03/26/2025 10:11:59 PM Referred By: REFERRED SELF Confirmed By: Darrin Guy
--- NOTE | 2025-03-26 23:33 | Electrocardiogram Report ---
Test Reason : Blood Pressure : */* mmHG Vent. Rate : 80 BPM Atrial Rate : 80 BPM P-R Int : 110 ms QRS Dur : 80 ms QT Int : 400 ms P-R-T Axes : 35 42 36 degrees QTcB Int : 461 ms Sinus rhythm with short SD Otherwise normal ECG When compared with ECG of 23-Mar-2025 18:32, (unconfirmed) SD interval has decreased Confirmed by Darrin Guy ([id number]) on 03/26/2025 11:32:47 PM Referred By: REFERRED SELF Confirmed By: Darrin Guy
--- NOTE | 2025-03-26 23:52 | Electrocardiogram Report ---
Test Reason : Blood Pressure : */* mmHG Vent. Rate : 85 BPM Atrial Rate : 85 BPM P-R Int : 146 ms QRS Dur : 88 ms QT Int : 376 ms P-R-T Axes : 52 67 62 degrees QTcB Int : 447 ms Poor data quality, interpretation may be adversely affected Normal sinus rhythm Normal ECG When compared with ECG of 23-Feb-2025 19:54, No significant change was found Confirmed by Darrin Guy ([id number]) on 03/26/2025 11:51:47 PM Referred By: REFERRED SELF Confirmed By: Darrin Guy
[2025-03-27 04:44] LABS: Hematocrit (blood only) 31.4 % (42.0-52.0); Hemoglobin 10.7 g/dl (14.0-18.0); Mean Corpuscular Hemoglobin 35.9 pg (25.0-34.0); Mean Corpuscular Volume 105.4 fL (80.0-100.0); Platelet Count 111 K/uL (130-400); RDW Standard Deviation 51.5 fL (36.4-46.3); Red Blood Count 2.98 M/uL (4.70-6.10); White Blood Count 4.34 K/ul (4.8-10.8)
[2025-03-27 05:02] LABS: Anion Gap 8.0 (3-11); Blood Urea Nitrogen 12.0 mg/dl (6-23); Calcium 8.7 mg/dl (8.6-10.3); Carbon Dioxide 24.0 mmol/L (21-32); Chloride 109.0 mmol/L (98-107); Creatinine Clr Calc Pharmacy 72.0 ml/min; Glucose 97.0 mg/dl (70-99(Fasting)); Magnesium 2.0 mg/dl (1.7-2.4); Potassium 3.9 mmol/L (3.5-5.1); Sodium 141.0 mmol/L (136-145); Triglycerides 242.0 mg/dl (0-150)
[2025-03-27] MEDS: MIDAZOLAM HCL 1 MG/ML 2ML VIAL IV STA (05:16)
[2025-03-27] MEDS: OPTIRAY 320 100ml IV ONE (06:05)
[2025-03-27 06:36] VITALS: RESP 18
[2025-03-27] MEDS: FUROSEMIDE INJ 20 MG/2 ML VIAL IV ONE (07:22)
--- NOTE | 2025-03-27 07:50 | CT Scan Report ---
EXAM: CT chest diagnostic w con CLINICAL HISTORY: Follow-up mediastinitis. TECHNIQUE: Contiguous 3.[address] images of the chest were acquired with administration of intravenous contrast. Coronal and sagittal reconstructions were obtained. 93 ml Optiray 320 Contrast was administered for post-contrast images. One of the following dose reduction techniques was utilized for this exam: automated exposure control, adjustment of the mA and/or kV according to patient size, and use of iterative reconstruction. COMPARISON: X-ray study dated 03/26/[address] chest dated 03/23/2025 FINDINGS: Lungs: Mild to moderate bilateral pleural effusion with consolidation and collapse of both lower lung lobes. Mediastinum: Evidence of pneumomediastinum and pericardial effusion with minute pneumopericardium, evident at the lower anterior aspect of the mediastinum. Hilar Structures: Normal size and configuration. No enlargement is present. Heart and Great Vessels: Evidence of pneumomediastinum and pericardial effusion with minute pneumopericardium, evident at the lower anterior aspect of the mediastinum. There is a normal caliber and course of the thoracic aorta and other great vessels. No significant atherosclerosis or aneurysm is present. Normal enhancement of the great vessels is noted post-contrast. Pulmonary Arteries: No evidence of pulmonary embolism. Normal size and course of the pulmonary arteries. Esophagus: Normal course and caliber. No masses or dilatation are seen. Bones: Multilevel right-sided old rib fractures. No acute fractures or lytic/sclerotic lesions are present. Normal bone density and alignment. Chest Wall: No masses or soft tissue abnormalities are seen. The ETT terminal end is in situ, 4 cm above the marcela. The NGT terminal end is in situ, intragastric. The scanned parts of the abdomen show a few hepatic focal lesions. IMPRESSION: 1. Evidence of pneumomediastinum and pericardial effusion with suspected minute pneumopericardium, evident at the anterior aspect of the mediastinum. New finding. 2. Mild to moderate bilateral pleural effusion with consolidation and collapse of both lower lung lobes. New finding. 3. Multilevel right-sided old rib fractures. Stable. 4. The ETT terminal end is in situ, 4 cm above the marcela. 5. The NGT terminal end is in situ, intragastric. 6. Few hypodense hepatic focal lesions, unchanged. Electronically signed by Thierno Whitehead 03-27-2025 07:49 AM
--- NOTE | 2025-03-27 07:57 | CT Scan Report ---
EXAM: CT soft tissue neck w con CLINICAL HISTORY: Follow-up mediastinitis TECHNIQUE: A CT scan of the neck was performed with administration of intravenous contrast. Sagittal and coronal reconstructions were obtained. 93 ml Optiray IV contrast was administered for post-contrast images. One of the following dose reduction techniques was utilized for this examination: automated exposure control, adjustment of the mA and/or kV according to patient size, and use of iterative reconstruction. COMPARISON: prior 03/24/2025 FINDINGS: [id number] /OBX.5.1.1OBX.5.1.2 NGT were noted /OBX.5.1.2/OBX.5.1 Decreased soft tissue edema is seen at the right aspect of the laryngeal cartilage, with loss of surrounding fat planes. There is no current evidence of paralaryngeal gas foci. There is no current evidence of contrast extravasation. A decreased amount of gas tracking through the anterior mediastinal planes is noted, with persistent mediastinal fatty stranding and multiple mediastinal lymph nodes, some of which are calcified. A decreased amount of bilateral multiple gas foci is seen at the subcutaneous regions and paravertebral fat spaces. Nasopharynx: The nasopharynx is normal in size and appearance. There are no masses or abnormal enhancement. Oropharynx: The oropharynx is normal in size and appearance. There are no masses or abnormal enhancement. Thyroid Gland: The thyroid gland is normal in size and morphology. There are no nodules or masses. There is normal enhancement post-contrast. Salivary Glands: The parotid, submandibular, and sublingual glands are normal in size and appearance. There is no evidence of sialadenitis or masses. Lymph Nodes: Bilateral enlarged reactive cervical lymph nodes are present. There is normal appearance of the lymph node chains. Vascular Structures: There is normal enhancement of the carotid arteries, jugular veins, and other major vessels post-contrast. There is no evidence of vascular malformations, aneurysms, or thrombosis. Bones: spondylo-degenerative changes Airway: The trachea and main bronchi are patent. There is no evidence of tracheal or bronchial stenosis or masses. Bilateral maxillary sinusitis is present. Bilateral pleural effusion exerting collapse is present. Right occipital lobe encephalomalacia is noted. IMPRESSION: 1. Mildly decreased soft tissue edema is seen at the right aspect of the laryngeal cartilage, with loss of surrounding fat planes. There is no current evidence of para-lymph node/carotid space gas foci. 2. There is no current evidence of contrast extravasation. 3. A decreased amount of bilateral multiple gas foci is seen at the subcutaneous regions and paravertebral fat spaces. 4. Bilateral maxillary sinusitis (unchanged). 5. Progressing mediastinal findings as detailed in CT chest study report. Electronically signed by Thierno Whitehead 03-27-2025 07:57 AM
[2025-03-27] MEDS: MAGNESIUM SULFATE / D5W 1 GM/100 ML BAG IV SCH (08:26)
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
--- NOTE | 2025-03-27 09:16 | Procedure Note ---
Procedure Note Date of Service March 27, 2025 Procedure date: Noted above Procedure: Central venous access Pre-procedure indication: Poor vascular access, both IVs malfunctioning and critically ill patient requiring continuous IV sedation Post-procedure Diagnosis: same as above Prior to Procedure: Informed Consent: Emergent consent implied. Attending Staff: Jacquelyn Workman DO Resident/APC: Not applicable Skin Prep: Chlorhexidine Anesthesia: 4 mL 1% lidocaine without epinephrine The identity of the patient was confirmed and a bedside time out was performed. Description of Procedure: After sterile prep and sterile drape utilizing standard sterile technique the superficial skin of the right femoral area was anesthetized. The target vessel was identified via dynamic ultrasound guidance and entered with an 18-gauge needle. Dark venous blood return was noted. A guidewire was inserted through the needle and into the vessel. The needle was withdrawn and a skin shavonne was made. A tissue dilator was advanced via Seldinger technique and removed. A triple lumen catheter was inserted via Seldinger t echnique and the guidewire removed. All ports stef and flushed easily. A Biopatch was placed, and the catheter was secured via silk suture. A sterile dressing was then applied. Complications: None Estimated blood loss: Trace Patient tolerated the procedure well. [facility] [place] Procedure Codes (Charges) Tubes, Drains, and Vasc Access Procedure 1: Tubes, Drains, and Vasc Access: [id number] Insertion Of Non-tunneled Catheter Age 4 Yrs> Coding CPT Codes Tubes, Drains, and Vasc Access - Tubes, Drains, and Vasc Access: [id number] Insertion Of Non-tunneled Catheter Age 4 Yrs> ([id number]) Additional Codes Date of Service ([facility].[email or web address])
[2025-03-27] MEDS: POTASSIUM CHLORIDE / WTR 10 MEQ/100 ML PLCT IV SCH (09:57)
[2025-03-27 10:15] VITALS: TEMP 98.4; O2SAT 93
[2025-03-27] MEDS: THIAMINE HCL 250 MG in SODIUM CHLORIDE 0.9% 50 ML IV SCH (10:50)
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
[2025-03-27 12:03] VITALS: BP 114/75; PULSE 45
[2025-03-29 14:03] LABS: 7-Aminoclonaz, Confirm NEGATIVE ng/mL (<25); Hydro-Alp Ur, GC/MS NEGATIVE ng/mL (<25); Hydroxyethylflurazepam, Conf NEGATIVE ng/mL (<50); Hydroxymidazolam Ur, GC/MS NEGATIVE ng/mL (<50); Lorazepam, Ur GC/MS 133 ng/mL (<50); Nordiazepam, Confirm 71 ng/mL (<50); Oxazepam Ur, GC/MS NEGATIVE ng/mL (<50); Temazepam, Confirm NEGATIVE ng/mL (<50)
[2025-03-30] MEDS ORDERED: THIAMINE HCL 100 MG in SYRINGE 9 ML IV SCH (09:00)
== END 2025-03-27 12:02 | disposition short-term general hospital (02) | DRG 896 ==
LOC: ED 17:33 → SUATTDRO 20:48 → 1E 20:48